=== PATIENT | male | born 1955 | race Caucasian/White ===

== ENCOUNTER 2021-05-03 18:07 | Inpatient (IN) | payer MEDICARE, BC ==
[~2021-05-03] VITALS: Ht 170.2 cm; Wt 44.9 kg
[2021-05-03 17:19] VITALS: BP 136/68
[2021-05-03] MEDS ORDERED: HYDR-4077 PO (18:49)
[2021-05-03] MEDS ORDERED: LACT1CAP57 PO (18:49)
[2021-05-03] MEDS ORDERED: TICA90TA PO (18:49)
[2021-05-03] MEDS ORDERED: DEXL60CA3 PO (18:49)
[2021-05-03] MEDS ORDERED: MINO2.5T PO (18:49)
[2021-05-03] MEDS ORDERED: LEVE500T9 PO (18:49)
[2021-05-03] MEDS ORDERED: PROC-11 PO (18:49)
--- NOTE | 2021-05-03 18:59 | NUR ---
RECEIVED PATIENT VIA AMBULANCE WITH 2 SECURITY AUDITOR AND HIS DAUGHTER AT BEDSIDE. ON O2 AT 3L JAKE NC, NO RESPIRATORY DISTRESS IDENTIFIED. NOTED WITH SKIN RASH TO UPPER EXTREMITIES, AND REDNESS TO SCROTAL TO SACRUM AREA, NO OPEN WOUND NOTED, DENIES ITCHINESS. REPORTED DISCOMFORT TO BOTH HANDS/ARMS. INFORMED MD OF ADMISSION FOR MED RECON. ORIENTED THE PATIENT TO THE ROOM. KEPT CALL LIGHT WITHIN REACH. ALL NEEDS ATTENDED. ENDORSED TO THE NEXT SHIFT TO CONTINUE WITH ADMISSION. MRSA SWAB DONE, SEND TO THE LAB.
[2021-05-03 20:05] VITALS: BP 122/62
[2021-05-03] MEDS: DOCUSATE SODIUM 100 MG CAPSULE PO SCH (21:03)
[2021-05-03] MEDS: levETIRAcetam 500 MG TABLET PO SCH (21:04)
[2021-05-03] MEDS: hydrALAZINE HCL 50 MG TABLET PO SCH (21:04)
--- NOTE | 2021-05-03 21:11 | NUR ---
Awake, alert and oriented x 3, able to follow command, able to make needs known. takes time convincing to take his medications. No s/s of aspiration. Seizure precaution maintained.
[2021-05-04 04:05] VITALS: BP 115/70
[2021-05-04] MEDS: PANTOPRAZOLE SODIUM 40 MG TABLET.DR PO SCH (06:26)
[2021-05-04 07:10] LABS: HEMATOCRIT 28.6 % (36.7-47.1); MEAN CORPUSCULAR HEMOGLOBIN 29.3 uug (23.8-33.4); MEAN CORPUSCULAR VOLUME 82.3 fL (73.0-96.2); PLATELET COUNT (AUTO) 585 K/uL (152-348)
[2021-05-04 07:30] LABS: THYROID STIMULATING HORMONE 0.873 mIU/mL (0.358-3.740)
[2021-05-04 07:56] LABS: BILIRUBIN,TOTAL 0.4 mg/dL (0.2-1.0); CREATININE 0.9 mg/dL (0.6-1.3); MAGNESIUM 2.3 mg/dL (1.8-2.4); PHOSPHOROUS 3.2 mg/dL (2.5-4.9); POTASSIUM 3.8 mmol/L (3.5-5.1); TOTAL PROTEIN, SERUM 6.9 g/dL (6.4-8.2)
[2021-05-04 08:00] VITALS: BP 125/60
[2021-05-04] MEDS ORDERED: TICAGRELOR 90 MG TABLET PO SCH (09:00)
[2021-05-04] MEDS: CULTURELLE CAPSULE PO SCH (10:23)
[2021-05-04] MEDS: levETIRAcetam 500 MG TABLET PO SCH ×2 (10:23→20:40)
[2021-05-04] MEDS: BRILINTA 90 MG PO SCH ×2 (10:24→17:59)
[2021-05-04] MEDS: hydrALAZINE HCL 50 MG TABLET PO SCH ×2 (10:24→17:59)
[2021-05-04] MEDS: MINOXIDIL 2.5 MG TABLET PO SCH ×2 (10:24→18:00)
[2021-05-04 13:47] LABS: IRON, SERUM 26 ug/dL (50-175)
--- NOTE | 2021-05-04 14:36 | NUR ---
INTERDISCIPLINARY TEAM CONFERENCE
[2021-05-04 20:00] VITALS: BP 105/50
[2021-05-04] MEDS: ATORVASTATIN 10 MG TABLET PO SCH (20:40)
[2021-05-04] MEDS: DOCUSATE SODIUM 100 MG CAPSULE PO SCH (20:40)
[2021-05-05 04:03] VITALS: BP 125/52
[2021-05-05] MEDS: PANTOPRAZOLE SODIUM 40 MG TABLET.DR PO SCH (06:43)
[2021-05-05 08:00] VITALS: BP 113/52
[2021-05-05] MEDS: CYANOCOBALAMIN 1000 MCG/ML VIAL IM SCH (08:56)
[2021-05-05] MEDS: hydrALAZINE HCL 50 MG TABLET PO SCH ×2 (08:57→17:48)
[2021-05-05] MEDS: CULTURELLE CAPSULE PO SCH (08:57)
[2021-05-05] MEDS: OXYMETAZOLINE NASAL 0.05% 15 ML SPRAY NS PRN (08:57)
[2021-05-05] MEDS: BRILINTA 90 MG PO SCH ×2 (08:58→17:48)
[2021-05-05] MEDS: levETIRAcetam 500 MG TABLET PO SCH ×2 (08:58→20:33)
[2021-05-05] MEDS: MINOXIDIL 2.5 MG TABLET PO SCH ×2 (08:58→17:48)
[2021-05-05 16:00] VITALS: BP 130/64
[2021-05-05] MEDS: ATORVASTATIN 10 MG TABLET PO SCH (20:32)
[2021-05-05] MEDS: DOCUSATE SODIUM 100 MG CAPSULE PO SCH (20:33)
[2021-05-05] MEDS ORDERED: ATORVASTATIN 10 MG TABLET PO SCH (21:00)
[2021-05-05 21:32] VITALS: BP 104/48
[2021-05-06 04:05] VITALS: BP 110/44
[2021-05-06] MEDS: HYDROMORPHONE HCL 2 MG TABLET PO PRN ×2 (04:07→11:47)
[2021-05-06] MEDS: PANTOPRAZOLE SODIUM 40 MG TABLET.DR PO SCH (06:17)
[2021-05-06 07:29] VITALS: BP 104/49
[2021-05-06] MEDS: levETIRAcetam 500 MG TABLET PO SCH ×2 (08:29→20:10)
[2021-05-06] MEDS: CYANOCOBALAMIN 1000 MCG/ML VIAL IM SCH (08:29)
[2021-05-06] MEDS: CULTURELLE CAPSULE PO SCH (08:30)
[2021-05-06] MEDS: BRILINTA 90 MG PO SCH ×2 (08:30→17:13)
[2021-05-06] MEDS: MINOXIDIL 2.5 MG TABLET PO SCH ×2 (08:30→17:12)
--- NOTE | 2021-05-06 08:53 | NUR ---
Received pt resting in bed and watching tv. AAO x3, able to let needs known C/O of feeling tired No acute distress noted. Denies pain/ discomfort. Due meds given as ordered, tolerated well up ambulating with. Safety measures maintained. Bed alarm on. Call light within reach. Will continue to monitor.
[2021-05-06] MEDS: hydrALAZINE HCL 50 MG TABLET PO SCH ×2 (09:00→17:11)
[2021-05-06] MEDS: OXYMETAZOLINE NASAL 0.05% 15 ML SPRAY NS PRN (10:45)
--- NOTE | 2021-05-06 14:04 | NUR ---
INDIVIDUALIZED PLAN OF CARE
[2021-05-06 15:15] VITALS: BP 112/57
[2021-05-06] MEDS: DOCUSATE SODIUM 100 MG CAPSULE PO SCH (20:08)
[2021-05-06] MEDS: ATORVASTATIN 10 MG TABLET PO SCH (20:09)
[2021-05-06] MEDS ORDERED: TESTOSTERONE CYPIONATE 200 MG/ML VIAL IM ONE (20:30)
[2021-05-06 20:48] VITALS: BP 89/47
--- NOTE | 2021-05-06 21:31 | NUR ---
Awake alert and oriented x4 OOB to the BR with assist. Gait unsteady. Voiding freely. Denies any pain nor any discomfort. On 2L via nasal cannula, pulse ox 92%. VSS. Tolerated po meds well. Will monitor patient. Needs attended. Fall precautions maintained. Siderails up for safety. LUE midline intact flushed and patent. No acute distress noted.
[2021-05-07] MEDS: HYDROMORPHONE HCL 2 MG TABLET PO PRN ×3 (02:00→20:20)
[2021-05-07 04:43] VITALS: BP 106/41
[2021-05-07] MEDS: PANTOPRAZOLE SODIUM 40 MG TABLET.DR PO SCH (06:07)
[2021-05-07 08:00] VITALS: BP 150/94
[2021-05-07] MEDS: levETIRAcetam 500 MG TABLET PO SCH ×2 (08:47→20:18)
[2021-05-07] MEDS: CYANOCOBALAMIN 1000 MCG/ML VIAL IM SCH (08:47)
[2021-05-07] MEDS: hydrALAZINE HCL 50 MG TABLET PO SCH ×2 (08:49→16:40)
[2021-05-07] MEDS: MINOXIDIL 2.5 MG TABLET PO SCH ×2 (08:50→16:41)
[2021-05-07] MEDS: CULTURELLE CAPSULE PO SCH (09:36)
[2021-05-07] MEDS: BRILINTA 90 MG PO SCH ×2 (09:36→16:42)
[2021-05-07 15:52] VITALS: BP 97/51
[2021-05-07] MEDS ORDERED: HYDROMORPHONE HCL 2 MG TABLET PO PRN (19:00)
[2021-05-07] MEDS ORDERED: HYDROMORPHONE 4 MG/1 ML DISP.SYRIN IV PRN (19:15)
[2021-05-07] MEDS ORDERED: HYDROMORPHONE 2 MG/1 ML DISP.SYRIN IV PRN (19:15)
[2021-05-07 20:06] VITALS: BP 134/59
[2021-05-07] MEDS: ATORVASTATIN 10 MG TABLET PO SCH (20:18)
[2021-05-07] MEDS: DOCUSATE SODIUM 100 MG CAPSULE PO SCH (20:19)
--- NOTE | 2021-05-07 23:44 | NUR ---
Resting in bed. AAOx4 Ambulates to the BR with supervision. Needs attended. Voiding well. No BM today. All due meds given without difficulty. Left upper midline flushed and patent. Will monitor patient. Medicated with Dilaudid 4mg as ordered with relief obtained. No acute distress noted.
[2021-05-08 04:03] VITALS: BP 110/58
[2021-05-08] MEDS: PANTOPRAZOLE SODIUM 40 MG TABLET.DR PO SCH (06:13)
[2021-05-08 08:00] VITALS: BP 113/49
[2021-05-08] MEDS: CYANOCOBALAMIN 1000 MCG/ML VIAL IM SCH (09:13)
[2021-05-08] MEDS: hydrALAZINE HCL 50 MG TABLET PO SCH ×2 (09:18→16:53)
[2021-05-08] MEDS: levETIRAcetam 500 MG TABLET PO SCH ×2 (09:18→20:00)
[2021-05-08] MEDS: CULTURELLE CAPSULE PO SCH (09:18)
[2021-05-08] MEDS: MINOXIDIL 2.5 MG TABLET PO SCH ×2 (09:18→16:53)
[2021-05-08] MEDS: BRILINTA 90 MG PO SCH ×2 (09:19→16:54)
[2021-05-08] MEDS: HYDROMORPHONE HCL 2 MG TABLET PO PRN ×2 (09:19→17:57)
[2021-05-08] MEDS: ENSURE ENLIVE (VAN) 240 ML LIQUID PO SCH ×2 (14:22→16:53)
[2021-05-08 16:37] VITALS: BP 119/56
[2021-05-08] MEDS: CLOTRIMAZOLE 1% CREAM 30 GM TUBE TOP SCH (17:35)
[2021-05-08] MEDS: ATORVASTATIN 10 MG TABLET PO SCH (20:00)
[2021-05-08] MEDS: DOCUSATE SODIUM 100 MG CAPSULE PO SCH (20:00)
[2021-05-08 20:03] VITALS: BP 114/49
--- NOTE | 2021-05-08 20:41 | NUR ---
Received pt resting in bed and watching tv. AAO x4. On 2L O2 via NC, 97% sat, no acute distress noted. Denies pain/ discomfort. Due meds given as ordered, tolerated well. Safety measures maintained. Call light and personal items within reach. Will continue to monitor.
[2021-05-09 04:03] VITALS: BP 120/50
[2021-05-09] MEDS: PANTOPRAZOLE SODIUM 40 MG TABLET.DR PO SCH (06:05)
[2021-05-09 07:49] VITALS: BP 107/44
[2021-05-09] MEDS: CULTURELLE CAPSULE PO SCH (08:32)
[2021-05-09] MEDS: levETIRAcetam 500 MG TABLET PO SCH ×2 (08:32→20:39)
[2021-05-09] MEDS: MINOXIDIL 2.5 MG TABLET PO SCH ×2 (08:32→16:41)
[2021-05-09] MEDS: CYANOCOBALAMIN 1000 MCG/ML VIAL IM SCH (08:33)
[2021-05-09] MEDS: BRILINTA 90 MG PO SCH ×2 (08:33→16:43)
[2021-05-09] MEDS: hydrALAZINE HCL 50 MG TABLET PO SCH ×2 (08:35→16:44)
[2021-05-09] MEDS: CLOTRIMAZOLE 1% CREAM 30 GM TUBE TOP SCH ×2 (08:39→16:45)
[2021-05-09] MEDS: ENSURE ENLIVE (VAN) 240 ML LIQUID PO SCH ×3 (08:48→16:43)
[2021-05-09] MEDS: HYDROMORPHONE HCL 2 MG TABLET PO PRN ×2 (09:19→15:04)
[2021-05-09 09:23] VITALS: BP 111/66
--- NOTE | 2021-05-09 09:30 | NUR ---
NSG: Received patient lying on bed. a/o x3. Denies any pain nor any discomfort. On 2L via nasal cannula, pulse ox 94%. VSS, am meds given Tolerated well. visited patient and talk to the patient.md stated patient is very depressed. received new ordered for psych meds. Needs attended. Fall precautions maintained. Side rails up for safety. LUE midline intact flushed and patent. No acute distress noted.
[2021-05-09] MEDS: FLUOXETINE HCL 10 MG CAPSULE PO SCH (10:11)
[2021-05-09 15:04] VITALS: BP 116/58
--- NOTE | 2021-05-09 18:39 | NUR ---
NSG: Patient remain calm and cooperative with meds and care. family visited. Denies pain or discomfort at this time. call light w/in reach.
[2021-05-09 19:59] VITALS: BP 100/47
[2021-05-09] MEDS: DOCUSATE SODIUM 100 MG CAPSULE PO SCH (20:39)
[2021-05-09] MEDS: MIRTAZAPINE 15 MG TABLET PO SCH (20:39)
[2021-05-09] MEDS: ATORVASTATIN 10 MG TABLET PO SCH (20:39)
[2021-05-10 04:15] VITALS: BP 107/43
[2021-05-10] MEDS: PANTOPRAZOLE SODIUM 40 MG TABLET.DR PO SCH (06:38)
[2021-05-10 07:30] VITALS: BP 106/54
[2021-05-10 07:34] LABS: HEMATOCRIT 25.1 % (36.7-47.1); MEAN CORPUSCULAR HEMOGLOBIN 29.1 uug (23.8-33.4); MEAN CORPUSCULAR VOLUME 83.9 fL (73.0-96.2); PLATELET COUNT (AUTO) 364 K/uL (152-348)
[2021-05-10 07:54] LABS: BILIRUBIN,TOTAL 0.3 mg/dL (0.2-1.0); CREATININE 0.9 mg/dL (0.6-1.3); MAGNESIUM 2.1 mg/dL (1.8-2.4); PHOSPHOROUS 3.8 mg/dL (2.5-4.9); POTASSIUM 3.9 mmol/L (3.5-5.1)
[2021-05-10] MEDS: levETIRAcetam 500 MG TABLET PO SCH ×2 (08:46→19:58)
[2021-05-10] MEDS: CYANOCOBALAMIN 1000 MCG/ML VIAL IM SCH (08:46)
[2021-05-10] MEDS: FLUOXETINE HCL 10 MG CAPSULE PO SCH (08:46)
[2021-05-10] MEDS: CULTURELLE CAPSULE PO SCH (08:46)
[2021-05-10] MEDS: hydrALAZINE HCL 50 MG TABLET PO SCH ×2 (08:47→16:45)
[2021-05-10] MEDS: ENSURE ENLIVE (VAN) 240 ML LIQUID PO SCH ×2 (08:49→13:20)
[2021-05-10] MEDS: BRILINTA 90 MG PO SCH ×2 (08:49→16:45)
[2021-05-10] MEDS: CLOTRIMAZOLE 1% CREAM 30 GM TUBE TOP SCH ×2 (08:50→16:47)
[2021-05-10] MEDS: MINOXIDIL 2.5 MG TABLET PO SCH ×2 (09:00→16:46)
[2021-05-10] MEDS: HYDROMORPHONE HCL 2 MG TABLET PO PRN ×2 (10:32→17:17)
[2021-05-10] MEDS ORDERED: diphenhydrAMINE 50 MG CAPSULE PO PRN (15:30)
[2021-05-10 16:00] VITALS: BP 121/60
--- NOTE | 2021-05-10 16:20 | NUR ---
Patient complained of not being able to sleep at night despite the Remeron given as ordered. Spoke to Dr. Kirk and ordered Diphenhydramine 50mg PO PRN Q HS.
[2021-05-10 19:54] VITALS: BP 104/43
[2021-05-10] MEDS: DOCUSATE SODIUM 100 MG CAPSULE PO SCH (19:56)
[2021-05-10] MEDS: MIRTAZAPINE 15 MG TABLET PO SCH (19:57)
[2021-05-10] MEDS: ATORVASTATIN 10 MG TABLET PO SCH (19:57)
[2021-05-11 04:13] VITALS: BP 111/53
[2021-05-11] MEDS: PANTOPRAZOLE SODIUM 40 MG TABLET.DR PO SCH (05:50)
[2021-05-11 07:30] VITALS: BP 112/57
--- NOTE | 2021-05-11 08:15 | NUR ---
Received pt resting in bed and watching tv. AAO x4. On 2L O2 via NC, 97% sat, no acute distress noted. no discomfort noted. Due meds given as ordered, tolerated well. Safety measures maintained. Call light and personal items within reach. Will continue to monitor.
[2021-05-11] MEDS: FLUOXETINE HCL 10 MG CAPSULE PO SCH (08:46)
[2021-05-11] MEDS: CYANOCOBALAMIN 1000 MCG/ML VIAL IM SCH (08:46)
[2021-05-11] MEDS: levETIRAcetam 500 MG TABLET PO SCH ×2 (08:46→20:42)
[2021-05-11] MEDS: CULTURELLE CAPSULE PO SCH (08:46)
[2021-05-11] MEDS: MINOXIDIL 2.5 MG TABLET PO SCH ×2 (08:47→17:38)
[2021-05-11] MEDS: BRILINTA 90 MG PO SCH ×2 (08:47→17:38)
[2021-05-11] MEDS: hydrALAZINE HCL 50 MG TABLET PO SCH ×2 (08:48→17:37)
--- NOTE | 2021-05-11 08:50 | NUR ---
INTERDISCIPLINARY TEAM CONFERENCE
[2021-05-11] MEDS: CLOTRIMAZOLE 1% CREAM 30 GM TUBE TOP SCH ×2 (08:55→17:38)
[2021-05-11] MEDS: HYDROMORPHONE HCL 2 MG TABLET PO PRN ×2 (08:59→15:32)
--- NOTE | 2021-05-11 13:29 | NUR ---
PT visited and examine by DR Rios with new order for Provigil 200 mg PO daily , order noted and carry out.
[2021-05-11 16:00] VITALS: BP 113/52
[2021-05-11 20:00] VITALS: BP 126/55
[2021-05-11] MEDS: ATORVASTATIN 10 MG TABLET PO SCH (20:42)
[2021-05-11] MEDS: MELATONIN 3 MG TABLET PO SCH (20:42)
[2021-05-11] MEDS: DOCUSATE SODIUM 100 MG CAPSULE PO SCH (20:42)
[2021-05-12 04:00] VITALS: BP 120/78
[2021-05-12] MEDS: PANTOPRAZOLE SODIUM 40 MG TABLET.DR PO SCH (06:44)
[2021-05-12 07:42] VITALS: BP 125/62
--- NOTE | 2021-05-12 07:42 | NUR ---
Received pt resting in bed asleep, No acute distress noted. No S/S of pain/ discomfort. Safety measures maintained. Bed alarm on. Call light within reach. Will continue to monitor.
[2021-05-12] MEDS: MODAFINIL 100 MG TABLET PO SCH ×2 (09:00→09:51)
[2021-05-12] MEDS: CYANOCOBALAMIN 1000 MCG/ML VIAL IM SCH (09:25)
[2021-05-12] MEDS: hydrALAZINE HCL 50 MG TABLET PO SCH ×2 (09:25→17:00)
[2021-05-12] MEDS: levETIRAcetam 500 MG TABLET PO SCH ×2 (09:25→20:46)
[2021-05-12] MEDS: CULTURELLE CAPSULE PO SCH (09:25)
[2021-05-12] MEDS: MINOXIDIL 2.5 MG TABLET PO SCH ×2 (09:26→17:25)
[2021-05-12] MEDS: BRILINTA 90 MG PO SCH ×2 (09:26→17:24)
[2021-05-12] MEDS: CLOTRIMAZOLE 1% CREAM 30 GM TUBE TOP SCH ×2 (09:28→17:26)
[2021-05-12] MEDS: FLUOXETINE HCL 10 MG CAPSULE PO SCH (09:28)
--- NOTE | 2021-05-12 09:30 | NUR ---
Pt Refused to take his new prescribed medication Provigil 200 mg stated " no i do not need the medicine will make my blood pressure go up attempted X 3 continue to refused .
[2021-05-12 15:50] VITALS: BP 107/57
[2021-05-12 20:00] VITALS: BP 109/44
[2021-05-12] MEDS ORDERED: diphenhydrAMINE 50 MG/1 ML VIAL IV PRN (20:30)
[2021-05-12] MEDS: DOCUSATE SODIUM 100 MG CAPSULE PO SCH (20:45)
[2021-05-12] MEDS: ATORVASTATIN 10 MG TABLET PO SCH (20:46)
[2021-05-12] MEDS: MELATONIN 3 MG TABLET PO SCH (20:46)
[2021-05-13 04:00] VITALS: BP 116/54
--- NOTE | 2021-05-13 05:57 | NUR ---
Patient remained stable during the shift. Denies pain/discomfort. Frequent checks done. Safety precautions maintained. All due meds given. all needs attended. Call light within reach. Will endorse to the next shift.
--- NOTE | 2021-05-13 06:00 | NUR ---
PATIENT REPORTED GENERALIZED PAIN. PRN PAIN MEDICATION GIVEN ORDERED. ENDORSED TO THE NEXT SHIFT.
[2021-05-13] MEDS: PANTOPRAZOLE SODIUM 40 MG TABLET.DR PO SCH (06:17)
[2021-05-13] MEDS: HYDROMORPHONE HCL 2 MG TABLET PO PRN ×2 (06:23→12:24)
[2021-05-13 07:50] VITALS: BP 86/44
[2021-05-13] MEDS: levETIRAcetam 500 MG TABLET PO SCH ×2 (08:14→20:20)
[2021-05-13] MEDS: CULTURELLE CAPSULE PO SCH (08:14)
[2021-05-13] MEDS: FLUOXETINE HCL 10 MG CAPSULE PO SCH (08:14)
[2021-05-13] MEDS: CYANOCOBALAMIN 1000 MCG/ML VIAL IM SCH (08:14)
[2021-05-13] MEDS: BRILINTA 90 MG PO SCH ×2 (08:14→17:24)
[2021-05-13] MEDS: MODAFINIL 100 MG TABLET PO SCH ×2 (08:21→09:00)
[2021-05-13] MEDS: hydrALAZINE HCL 50 MG TABLET PO SCH ×2 (08:26→17:00)
[2021-05-13] MEDS: MINOXIDIL 2.5 MG TABLET PO SCH ×2 (08:27→17:00)
[2021-05-13] MEDS: CLOTRIMAZOLE 1% CREAM 30 GM TUBE TOP SCH ×2 (08:29→17:24)
[2021-05-13 08:31] VITALS: BP 100/54
[2021-05-13 17:19] VITALS: BP 99/58
[2021-05-13] MEDS ORDERED: TEMAZEPAM 15 MG CAPSULE PO PRN (17:30)
--- NOTE | 2021-05-13 19:23 | NUR ---
no changes noted during shift
[2021-05-13] MEDS: DOCUSATE SODIUM 100 MG CAPSULE PO SCH (20:21)
[2021-05-13] MEDS: ATORVASTATIN 10 MG TABLET PO SCH (20:21)
[2021-05-13] MEDS: MELATONIN 3 MG TABLET PO SCH (20:28)
[2021-05-13 20:33] VITALS: BP 126/65
[2021-05-13] MEDS ORDERED: diphenhydrAMINE 50 MG CAPSULE PO PRN (20:45)
--- NOTE | 2021-05-14 03:35 | NUR ---
Received pt awake sitting on bed with daughter at bedside. No respiratory distress noted. Pt refused melatonin d/t not helping with sleep. Benadryl IV converted back to previous order of PO as requested by pt and daughter. Denies pain and discomfort at this time. All needs attended. Call light placed within reach. Will continue to monitor.
[2021-05-14 04:26] VITALS: BP 119/55
[2021-05-14] MEDS: PANTOPRAZOLE SODIUM 40 MG TABLET.DR PO SCH (06:05)
--- NOTE | 2021-05-14 06:53 | NUR ---
No changes noted throughout the shift. Call light placed within reach. Frequent visual checks done. Will endorse to next shift.
[2021-05-14] MEDS: CULTURELLE CAPSULE PO SCH (08:42)
[2021-05-14] MEDS: hydrALAZINE HCL 50 MG TABLET PO SCH ×2 (08:42→17:12)
[2021-05-14] MEDS: FLUOXETINE HCL 10 MG CAPSULE PO SCH (08:43)
[2021-05-14] MEDS: levETIRAcetam 500 MG TABLET PO SCH (08:43)
[2021-05-14] MEDS: MODAFINIL 100 MG TABLET PO SCH (08:43)
[2021-05-14] MEDS: MINOXIDIL 2.5 MG TABLET PO SCH ×2 (08:43→17:13)
[2021-05-14] MEDS: BRILINTA 90 MG PO SCH ×2 (08:44→17:13)
[2021-05-14] MEDS: CYANOCOBALAMIN 1000 MCG/ML VIAL IM SCH (08:47)
[2021-05-14] MEDS: CLOTRIMAZOLE 1% CREAM 30 GM TUBE TOP SCH ×2 (08:47→17:14)
[2021-05-14] MEDS: HYDROMORPHONE HCL 2 MG TABLET PO PRN ×2 (08:52→17:13)
[2021-05-14 12:39] VITALS: BP 104/41
[2021-05-14 16:03] VITALS: BP 120/59
[2021-05-14 17:12] VITALS: BP 120/59
--- NOTE | 2021-05-14 18:43 | NUR ---
d/c to home left with daughter via private transportation. d/c instructions given to him and his daughter verbalized understanding. meds returned from pharmacy. vss in no acute distress
== END 2021-05-14 18:10 | disposition home health service (06) | DRG 92 ==
PROVIDERS: ADMIT Physical Medicine & Rehabilitation Pain Medicine; ATTEND Physical Medicine & Rehabilitation Pain Medicine
DX: G92.8 Other toxic encephalopathy (principal); D84.89 Other immunodeficiencies; F33.1 Major depressive disorder, recurrent, moderate; R62.7 Adult failure to thrive; D64.9 Anemia, unspecified; E53.8 Deficiency of other specified B group vitamins; E78.5 Hyperlipidemia, unspecified; G40.909 Epilepsy, unspecified, not intractable, without status epilepticus; G89.29 Other chronic pain; I25.10 Atherosclerotic heart disease of native coronary artery without angina pectoris; I70.0 Atherosclerosis of aorta; M85.80 Other specified disorders of bone density and structure, unspecified site; M51.16 Intervertebral disc disorders with radiculopathy, lumbar region; M19.90 Unspecified osteoarthritis, unspecified site; Z86.61 Personal history of infections of the central nervous system; Z91.14 Patient's other noncompliance with medication regimen; Z91.19 Patient's noncompliance with other medical treatment and regimen; Z95.5 Presence of coronary angioplasty implant and graft; M54.9 Dorsalgia, unspecified; Z88.0 Allergy status to penicillin; Z88.2 Allergy status to sulfonamides; Z88.8 Allergy status to other drugs, medicaments and biological substances; Z88.1 Allergy status to other antibiotic agents; Z91.011 Allergy to milk products; R53.1 Weakness; F01.50 Vascular dementia, unspecified severity, without behavioral disturbance, psychotic disturbance, mood disturbance, and anxiety; I10 Essential (primary) hypertension; I11.9 Hypertensive heart disease without heart failure
CPT/HCPCS: 36415; 70030-TC; 82652; 83550; 83735; 84100; 84443; 85025; 97161; J1170; J1200; J3420; Q0163

== ENCOUNTER 2022-02-14 14:11 | Inpatient (IN) | payer MEDICARE, BC ==
[~2022-02-14] VITALS: Ht 170.2 cm; Wt 49.9 kg
[~2022-02-14 14:11] MED LIST: AMIN946L5 PO; CLOP75TA15 PO; DEXL60CA3 PO; DOXY-326 PO; ENOX40DI SQ; HYDR-4077 PO; LACT1CAP57 PO; LEVE500T9 PO; MINO2.5T PO
--- NOTE | 2022-02-14 15:41 | NUR ---
MD@bedside, medical screening exam in progress
[2022-02-14] MEDS ORDERED: ATOR10TA PO (15:49)
[2022-02-14] MEDS ORDERED: PROC-11 PO (15:49)
[2022-02-14] MEDS ORDERED: LORA2TAB95 PO (15:49)
[2022-02-14] MEDS ORDERED: HYDR2TAB7 PO (15:49)
[2022-02-14] MEDS ORDERED: LORA-259 PO (15:49)
[2022-02-14] MEDS ORDERED: NALO25TA4 PO (15:49)
[2022-02-14] MEDS ORDERED: DICY10CA13 PO (15:49)
[2022-02-14] MEDS ORDERED: PANT40TA2 PO (15:49)
[2022-02-14] MEDS ORDERED: CHOL2000 PO (15:49)
[2022-02-14] MEDS ORDERED: IV NS 1000 ML 1,000 ML IV ONE ×2 (16:00→18:45)
--- NOTE | 2022-02-14 16:00 | NUR ---
Farm Machinery Mechanic assumes care: 1st contact with patient, asleep, respiration: easy, arousable by voice and soft touch, +eye opening seen with stimuli but non-verbal , skin warm and dry. Patient's daughter is at bedside.
--- NOTE | 2022-02-14 16:11 | NUR ---
Lab staff Ita was not able to draw blood, notified. IV fluid infusing at this time. Midline/PICC nurse was called by nursing boiler shop supervisor Yanira.
--- NOTE | 2022-02-14 17:50 | NUR ---
PICC line nurse is at bedside.
[2022-02-14 18:15] LABS: HEMATOCRIT 30.3 % (36.7-47.1); MEAN CORPUSCULAR HEMOGLOBIN 29.8 uug (23.8-33.4); MEAN CORPUSCULAR VOLUME 85.7 fL (73.0-96.2); PLATELET COUNT (AUTO) 167 K/uL (152-348)
[2022-02-14 18:19] LABS: CARBON DIOXIDE 30 mmol/L (21-32); CHLORIDE 103 mmol/L (98-107); CREATININE 0.9 mg/dL (0.6-1.3); GLUCOSE 98 mg/dL (74-106); POTASSIUM 3.9 mmol/L (3.5-5.1); UREA NITROGEN, BLOOD 16 mg/dL (7-18)
[2022-02-14 18:25] LABS: ALANINE AMINOTRANSFERASE 23 U/L (16-63); ALKALINE PHOSPHATASE 69 U/L (50-136); ASPARTATE AMINOTRANSFERASE 7 U/L (15-37); BILIRUBIN,TOTAL 0.5 mg/dL (0.2-1.0); CREATINE KINASE, TOTAL 55 U/L (39-308); MAGNESIUM 1.6 mg/dL (1.8-2.4)
[2022-02-14 18:32] LABS: THYROID STIMULATING HORMONE 1.658 mIU/mL (0.358-3.740)
[2022-02-14] MEDS ORDERED: MAGNESIUM SULFATE/D5W 200 ML ONE (18:54)
[2022-02-14] MEDS: MAGNESIUM SULFATE/D5W 100 ML IV SCH ×2 (19:00→19:55)
[2022-02-14] MEDS ORDERED: ACETAMINOPHEN 325 MG TABLET PO PRN (19:00)
[2022-02-14] MEDS ORDERED: ONDANSETRON 4 MG/2 ML VIAL IV PRN (19:00)
[2022-02-14] MEDS ORDERED: MORPHINE SULFATE 2 MG/1 ML DISP.SYRIN IV PRN (19:00)
[2022-02-14] MEDS ORDERED: MAGNESIUM HYDROXIDE 30 ML LIQUID UDC PO PRN (19:00)
[2022-02-14] MEDS ORDERED: PROCHLORPERAZINE MALEATE 5 MG TABLET PO PRN (19:00)
--- NOTE | 2022-02-14 19:03 | NUR ---
Patient is waiting for telemetry bed & nurse, still for urine specimen, endorsed to 7pm nurse Aaron and CHANG Du accordingly.
[2022-02-14 20:00] VITALS: BP 143/69
--- NOTE | 2022-02-14 20:00 | NUR ---
Received pt via teena assisted by nursing supervisor inspection department. Daughter at bedside, knowledgeable of father's condition. Admitted to Med Surg under Dr. Wen with diagnosis of Failure to thrive. AAOx3, can comprehend but unable to explain back. Able to answer simple questions. On room air. Has generalized weakness. Unable to ambulate. IV on R UA Midline intact and patent. Finished 2nd bag of Magnesium. Skin is intact. Denies pain or any discomfort. All needs attended. Safety precautions observed. Call light in reach.
[2022-02-14] MEDS: levETIRAcetam 500 MG TABLET PO SCH (21:59)
[2022-02-14] MEDS: HEPARIN SODIUM,PORCINE 5,000 UNITS/ML VIAL SQ SCH (21:59)
[2022-02-14] MEDS: ATORVASTATIN 10 MG TABLET PO SCH (21:59)
[2022-02-14] MEDS: LORAZEPAM 1 MG TABLET PO PRN (22:45)
[2022-02-15] MEDS: PANTOPRAZOLE SODIUM 40 MG TABLET.DR PO SCH (06:02)
[2022-02-15 08:15] LABS: HEMATOCRIT 30.6 % (36.7-47.1); MEAN CORPUSCULAR HEMOGLOBIN 29.3 uug (23.8-33.4); MEAN CORPUSCULAR VOLUME 84.6 fL (73.0-96.2); PLATELET COUNT (AUTO) 173 K/uL (152-348)
[2022-02-15 08:58] LABS: BILIRUBIN,TOTAL 0.5 mg/dL (0.2-1.0); CREATININE 0.8 mg/dL (0.6-1.3); PHOSPHOROUS 3.4 mg/dL (2.5-4.9); POTASSIUM 3.6 mmol/L (3.5-5.1); TOTAL PROTEIN, SERUM 6.5 g/dL (6.4-8.2)
[2022-02-15] MEDS ORDERED: DOCUSATE SODIUM 100 MG CAPSULE PO SCH (09:00)
[2022-02-15] MEDS ORDERED: MIRALAX 17 GM POWD.PACK PO SCH (09:00)
[2022-02-15] MEDS: CLOPIDOGREL 75 MG TABLET PO SCH (10:08)
[2022-02-15] MEDS: levETIRAcetam 500 MG TABLET PO SCH ×3 (10:08→21:00)
[2022-02-15] MEDS: MINOXIDIL 2.5 MG TABLET PO SCH ×2 (10:09→17:04)
[2022-02-15] MEDS: DICYCLOMINE HCL 10 MG CAPSULE PO SCH (10:09)
[2022-02-15] MEDS: CULTURELLE CAPSULE PO SCH (10:09)
[2022-02-15] MEDS: CHOLECALCIFEROL 1,000 UNIT TABLET PO SCH (10:10)
[2022-02-15] MEDS: HEPARIN SODIUM,PORCINE 5,000 UNITS/ML VIAL SQ SCH ×2 (10:10→20:51)
[2022-02-15] MEDS: PROTEIN SUPPLEMENT (PROSTAT) 30 ML LIQUID PO SCH ×3 (10:11→17:04)
[2022-02-15 11:32] VITALS: BP 132/62
[2022-02-15] MEDS: IV D5/ 0.9% NACL 1,000 ML IV PRN (12:42)
[2022-02-15 13:05] LABS: *BILIRUBIN,URIN NEGATIVE (NEGATIVE); *BLOOD, URINE NEGATIVE (NEGATIVE); *CLARITY,URINE CLEAR (CLEAR); *COLOR,URINE YELLOW (YELLOW); *KETONES,URINE NEGATIVE (NEGATIVE); *UROBILINOGEN,URINE 0.2 E.U./dl (NORMAL); LEUKOCYTE ESTERASE ,URINE NEGATIVE (NEGATIVE); NITRITE, URINE NEGATIVE (NEGATIVE); PH,URINE 7.5 (5.0-8.0); UGLUCOSE NEGATIVE (NEGATIVE)
[2022-02-15] MEDS: MOVANTIK 25MG TABLET PO SCH (13:32)
[2022-02-15 16:00] VITALS: BP 134/53
[2022-02-15] MEDS: HYDROMORPHONE HCL 2 MG TABLET PO PRN (18:39)
[2022-02-15 20:00] VITALS: BP 167/79
[2022-02-15] MEDS: ATORVASTATIN 10 MG TABLET PO SCH ×2 (20:49→21:00)
[2022-02-15] MEDS: hydrALAZINE HCL 20 MG/1 ML VIAL IV PRN (20:49)
--- NOTE | 2022-02-15 20:50 | NUR ---
BP 167/79. Apresoline given as ordered. Will continue to monitor.
--- NOTE | 2022-02-15 22:10 | NUR ---
Pt refused to take PO medications and water. Will continue to monitor.
[2022-02-15] MEDS ORDERED: LORAZEPAM 2 MG/1 ML VIAL IV PRN (23:30)
[2022-02-15] MEDS ORDERED: QUETIAPINE FUMARATE 25 MG TABLET PO PRN (23:30)
--- NOTE | 2022-02-15 23:55 | NUR ---
Pt keeps on getting out of bed for no reason. Doesn't follow instructions. MD aware. Received order for Ativan 1 mg IV once. Administered as ordered. Safety precautions in place. All needs attended.
[2022-02-16] MEDS: IV D5/ 0.9% NACL 1,000 ML IV PRN (02:38)
[2022-02-16] MEDS: hydrALAZINE HCL 20 MG/1 ML VIAL IV PRN (04:30)
[2022-02-16 04:37] VITALS: BP 134/74
[2022-02-16] MEDS: PANTOPRAZOLE SODIUM 40 MG TABLET.DR PO SCH (06:29)
[2022-02-16 08:16] LABS: HEMATOCRIT 30.5 % (36.7-47.1); MEAN CORPUSCULAR HEMOGLOBIN 29.8 uug (23.8-33.4); MEAN CORPUSCULAR VOLUME 84.3 fL (73.0-96.2); PLATELET COUNT (AUTO) 192 K/uL (152-348)
[2022-02-16] MEDS: CHOLECALCIFEROL 1,000 UNIT TABLET PO SCH (08:36)
[2022-02-16] MEDS: DICYCLOMINE HCL 10 MG CAPSULE PO SCH (08:36)
[2022-02-16] MEDS: CULTURELLE CAPSULE PO SCH (08:36)
[2022-02-16] MEDS: CLOPIDOGREL 75 MG TABLET PO SCH (08:36)
[2022-02-16] MEDS: MINOXIDIL 2.5 MG TABLET PO SCH ×2 (08:37→16:35)
[2022-02-16] MEDS: HEPARIN SODIUM,PORCINE 5,000 UNITS/ML VIAL SQ SCH ×2 (08:37→20:08)
[2022-02-16] MEDS: levETIRAcetam 500 MG TABLET PO SCH ×2 (08:37→20:03)
[2022-02-16 08:47] LABS: CREATININE 0.8 mg/dL (0.6-1.3); MAGNESIUM 1.7 mg/dL (1.8-2.4); PHOSPHOROUS 3.4 mg/dL (2.5-4.9); POTASSIUM 3.3 mmol/L (3.5-5.1)
[2022-02-16] MEDS: MOVANTIK 25MG TABLET PO SCH (08:50)
[2022-02-16] MEDS: PROTEIN SUPPLEMENT (PROSTAT) 30 ML LIQUID PO SCH ×5 (09:00→21:00)
[2022-02-16] MEDS ORDERED: MAGNESIUM OXIDE 400 MG TABLET PO ONE (10:30)
[2022-02-16] MEDS ORDERED: POTASSIUM CHLORIDE 20 MEQ TAB.PRT.SR PO ONE ×2 (10:30→11:03)
[2022-02-16] MEDS: LORAZEPAM 1 MG TABLET PO PRN ×2 (11:10→20:04)
[2022-02-16 12:29] VITALS: BP 142/62
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
[2022-02-16 16:16] VITALS: BP 145/73
[2022-02-16] MEDS ORDERED: LORAZEPAM 2 MG/1 ML VIAL IV ONE (16:30)
[2022-02-16] MEDS ORDERED: QUETIAPINE FUMARATE 25 MG TABLET PO ONE (16:30)
[2022-02-16] MEDS: HYDROMORPHONE HCL 2 MG TABLET PO PRN (16:36)
--- NOTE | 2022-02-16 17:00 | NUR ---
pt daughter is with the pt calling the nurse to un hook the iv try to put the long sleeves shirt try to explain to her with the iv continue she start screaming on the nurse and saying we are not here to make the nurses friends ,you needs to get stronger ,send the other nurse to the pt room
[2022-02-16 20:00] VITALS: BP 123/63
[2022-02-16] MEDS: ATORVASTATIN 10 MG TABLET PO SCH (20:04)
[2022-02-16] MEDS: QUETIAPINE FUMARATE 25 MG TABLET PO SCH (21:00)
[2022-02-17 04:00] VITALS: BP 120/68
[2022-02-17 07:05] LABS: CREATININE 0.9 mg/dL (0.6-1.3); MAGNESIUM 1.7 mg/dL (1.8-2.4); POTASSIUM 3.8 mmol/L (3.5-5.1)
[2022-02-17] MEDS: PANTOPRAZOLE SODIUM 40 MG TABLET.DR PO SCH (07:18)
[2022-02-17] MEDS: MOVANTIK 25MG TABLET PO SCH (09:00)
[2022-02-17] MEDS ORDERED: CYANOCOBALAMIN 1000 MCG/ML VIAL IM ONE (10:00)
[2022-02-17] MEDS ORDERED: CYANOCOBALAMIN 1000 MCG/ML VIAL IM SCH (10:00)
[2022-02-17] MEDS ORDERED: MAGNESIUM OXIDE 400 MG TABLET PO ONE (10:00)
[2022-02-17] MEDS: CHOLECALCIFEROL 1,000 UNIT TABLET PO SCH (10:01)
[2022-02-17] MEDS: levETIRAcetam 500 MG TABLET PO SCH ×2 (10:02→21:26)
[2022-02-17] MEDS: DICYCLOMINE HCL 10 MG CAPSULE PO SCH (10:02)
[2022-02-17] MEDS: CULTURELLE CAPSULE PO SCH (10:09)
[2022-02-17] MEDS: MINOXIDIL 2.5 MG TABLET PO SCH ×2 (10:09→17:27)
[2022-02-17] MEDS: CLOPIDOGREL 75 MG TABLET PO SCH (10:11)
[2022-02-17] MEDS: HEPARIN SODIUM,PORCINE 5,000 UNITS/ML VIAL SQ SCH ×2 (10:11→21:29)
[2022-02-17] MEDS: PROTEIN SUPPLEMENT (PROSTAT) 30 ML LIQUID PO SCH ×3 (10:16→17:27)
--- NOTE | 2022-02-17 12:43 | NUR ---
10:30-PATIENT LEFT TO [facility] SCHEDULED FOR MRI OF BRAIN W/O CONTRAST, LEFT IN STABLE CONDITIONS. DUE MEDICATIONS ADMINISTERED ORDERED, NO ASE NOTED. 11:15 REC'D A CALL FROM NOAH AT [facility], PER NOAH PATIENT IS UNCOOPERATIVE AND REFUSING ABOVE PROCEDURE; INFORMED NOAH TO GIVE PATIENT SOME TIME AND TRY GET PROCEDURE DONE. 12:15PM-PATIENT REFUSED PROCEDURE AND CAME BACK AT THIS TIME. COLLEGE OR UNIVERSITY BUSINESS MANAGER CRUZ YOUNG WAS MADE AWARE OF PROCEDURE NOT DONE DT PATIENT REFUSED. PER CRUZ, "OK" AND TO RESUME IVF HYDRATION.
[2022-02-17 15:02] VITALS: BP 157/77
--- NOTE | 2022-02-17 17:40 | NUR ---
Patient on IVF hydration as ordered, tona. well no S/S of dehydration or fluid overload noted. Oral fluids encouraged as tolerated and taken fairly during shift. Patient requires maximum assist with ADLs for personal care/hygiene. Incontinent of both, Good care provided. No AMUREEN noted.
[2022-02-17] MEDS: HYDROMORPHONE HCL 2 MG TABLET PO PRN (19:40)
[2022-02-17 20:50] VITALS: BP 144/72
[2022-02-17] MEDS: QUETIAPINE FUMARATE 25 MG TABLET PO SCH (21:26)
[2022-02-17] MEDS: ATORVASTATIN 10 MG TABLET PO SCH (21:26)
[2022-02-18 04:43] VITALS: BP 156/73
[2022-02-18] MEDS: IV D5/ 0.9% NACL 1,000 ML IV PRN ×2 (05:44→21:30)
[2022-02-18] MEDS: PANTOPRAZOLE SODIUM 40 MG TABLET.DR PO SCH (06:32)
--- NOTE | 2022-02-18 07:48 | NUR ---
during rounding patient noted standing out of bed, assisted back to bed with another nurse, safety precautions are in place, call light with in reach, patient stated his name is Nubia, when asked patient if knows where is he currently, patient did not answer, went back to sleep, unable to reinforce any education because patient is confuse and not able to participate. bed alarm is on. continue to monitor. Addendum: 02/18/22 at 1610 by MOISES GARSIA RN RN unsteady gait and poor balance, high risk for injury.
[2022-02-18 08:00] VITALS: BP 148/70
[2022-02-18 08:07] LABS: *TESTOSTERONE, SERUM 196 ng/dL (264-916)
[2022-02-18] MEDS: HEPARIN SODIUM,PORCINE 5,000 UNITS/ML VIAL SQ SCH ×2 (09:03→20:03)
[2022-02-18] MEDS: levETIRAcetam 500 MG TABLET PO SCH ×2 (09:04→20:04)
[2022-02-18] MEDS: CULTURELLE CAPSULE PO SCH (09:04)
[2022-02-18] MEDS: CLOPIDOGREL 75 MG TABLET PO SCH (09:04)
[2022-02-18] MEDS: CYANOCOBALAMIN 1000 MCG/ML VIAL IM SCH (09:04)
[2022-02-18] MEDS: CHOLECALCIFEROL 1,000 UNIT TABLET PO SCH (09:05)
[2022-02-18] MEDS: MOVANTIK 25MG TABLET PO SCH (09:05)
[2022-02-18] MEDS: DICYCLOMINE HCL 10 MG CAPSULE PO SCH (09:05)
[2022-02-18] MEDS: MINOXIDIL 2.5 MG TABLET PO SCH ×2 (09:05→17:06)
[2022-02-18] MEDS: PROTEIN SUPPLEMENT (PROSTAT) 30 ML LIQUID PO SCH ×2 (09:06→17:06)
[2022-02-18] MEDS: LORAZEPAM 1 MG TABLET PO PRN ×2 (12:03→20:04)
[2022-02-18 12:44] VITALS: BP 158/84
--- NOTE | 2022-02-18 12:53 | NUR ---
patient constantly trying to get out of the bed, reoriented, assisted to the toilet, assisted back to bed, safety precautions are in place, bed alarm on, bed in low position, continue to monitor. unable to teach patient about safety because of poor concentration.
--- NOTE | 2022-02-18 13:11 | NUR ---
on duty hammer shop supervisor and on duty charge nurse checked on patient. since daughter complained about IV. IV is patent, running fluids as ordered.
--- NOTE | 2022-02-18 14:16 | NUR ---
patient is getting aggressive, try to redirect and started hitting, called dr Mari for consult, and Dr Eastman. Yuly made aware as well.
--- NOTE | 2022-02-18 14:19 | NUR ---
patient stated he is in pain, did not state the level of pain from 0-10 upon asking, offered patient Dilaudid and Morphine as ordered, patient refused to take anything for pain at this time.
[2022-02-18] MEDS ORDERED: OLANZAPINE 10 MG VIAL IM ONE (14:45)
--- NOTE | 2022-02-18 14:51 | NUR ---
patient started walking to outside the hallway, difficult to redirect, patient stated he wants to go downstairs, upon redirecting patient got combative, started hitting, minnie marroquin was called, charge nurse on duty and supervisor last model department on duty assessed the situation. Yuly SANCHEZ made aware, with order to give Zyprexa IM as ordered, order noted, Zyprexa IM administered, continue to monitor patient. Addendum: 02/18/22 at 1456 by MOISES GARSIA RN, RN charge nurse on duty made a decision to restraint the patient for patient safety, order obtained from LAURA Emery.
--- NOTE | 2022-02-18 14:58 | NUR ---
offered patient fluids, clean and dry, comfortable in bed, continue to monitor
--- NOTE | 2022-02-18 16:05 | NUR ---
checked on patient , fully awake, no sob, respiration even nonlabored, skin warm and dry to touch, assessed skin, skin intact, capillary refill less than 3 seconds,good circulation to both hands, fluids given, assisted to the bathroom, no distress noted. Addendum: 02/18/22 at 1611 by MOISES GARSIA RN, RN current vitals bp 135/81,pulse 92,respirations 18, temperature 98.0, pain 0/10
[2022-02-18 16:11] VITALS: BP 135/81
[2022-02-18 16:36] VITALS: BP 135/81
--- NOTE | 2022-02-18 17:08 | NUR ---
patient is in bed, comfortable, clean and dry, fully awake, no sob,no distress noted, checks made on patient every 15 minutes, no skin issues noted, offered fluids, toileting, asked patient if he has pain, patient denied any pain at this time, continue to monitor per unit protocol.
--- NOTE | 2022-02-18 18:03 | NUR ---
patient is taken karel toilet, patient voided, cleaned. assisted back to bed, restrain removed intermittently, with supervision, patient tried to get up every time tried to remove the restrain, very poor safety awareness, high risk for injury tried to redirect patient, not effective, unsteady gait,assisted with feeding dinner and oral fluids are provided, oral care, perineal care provided, put back on restraint. no sob, respirations are even nonlabored, skin warm and dry to touch,skin intact, good circulation, no distress noted.
--- NOTE | 2022-02-18 19:16 | NUR ---
patient is awake, in bed, no distress noted, endorsed to next shift accordingly
[2022-02-18] MEDS: ATORVASTATIN 10 MG TABLET PO SCH (20:03)
[2022-02-18] MEDS: HYDROMORPHONE HCL 2 MG TABLET PO PRN (20:05)
[2022-02-18] MEDS: QUETIAPINE FUMARATE 25 MG TABLET PO SCH (20:08)
[2022-02-18 20:54] VITALS: BP 145/72
[2022-02-19 04:27] VITALS: BP 132/62
[2022-02-19] MEDS: PANTOPRAZOLE SODIUM 40 MG TABLET.DR PO SCH (07:52)
[2022-02-19] MEDS: DICYCLOMINE HCL 10 MG CAPSULE PO SCH (09:00)
[2022-02-19] MEDS: levETIRAcetam 500 MG TABLET PO SCH ×2 (09:00→22:01)
[2022-02-19] MEDS: CYANOCOBALAMIN 1000 MCG/ML VIAL IM SCH (09:00)
[2022-02-19] MEDS: CHOLECALCIFEROL 1,000 UNIT TABLET PO SCH (09:00)
[2022-02-19] MEDS: CLOPIDOGREL 75 MG TABLET PO SCH (09:00)
[2022-02-19] MEDS: MOVANTIK 25MG TABLET PO SCH (09:00)
[2022-02-19] MEDS: HEPARIN SODIUM,PORCINE 5,000 UNITS/ML VIAL SQ SCH ×2 (09:00→22:02)
[2022-02-19] MEDS: MINOXIDIL 2.5 MG TABLET PO SCH ×3 (09:00→17:00)
[2022-02-19] MEDS: CULTURELLE CAPSULE PO SCH (09:00)
[2022-02-19] MEDS: PROTEIN SUPPLEMENT (PROSTAT) 30 ML LIQUID PO SCH ×2 (09:00→17:00)
[2022-02-19 11:22] VITALS: BP 157/82
[2022-02-19] MEDS: IV D5/ 0.9% NACL 1,000 ML IV PRN (13:01)
[2022-02-19] MEDS: HYDROMORPHONE HCL 2 MG TABLET PO PRN (13:11)
[2022-02-19 15:44] VITALS: BP 157/80
[2022-02-19] MEDS ORDERED: LORAZEPAM 1 MG TABLET PO PRN ×2 (17:00)
[2022-02-19 20:00] VITALS: BP 149/72
--- NOTE | 2022-02-19 21:30 | NUR ---
PATIENT IN BED AWAKE BUT CONFUSED TRIES TO GET OOB . ON SOFT BILATERAL WRIST RESTRAINTS FOR SAFETY .EDUCATED PATIENT AND ADVISED TO CALL FOR HELP CALL LIGHT PLACED WITHIN REACH .
[2022-02-19] MEDS: QUETIAPINE FUMARATE 25 MG TABLET PO SCH (22:00)
[2022-02-19] MEDS: ATORVASTATIN 10 MG TABLET PO SCH (22:01)
[2022-02-20] MEDS: IV D5/ 0.9% NACL 1,000 ML IV PRN ×2 (01:28→15:40)
[2022-02-20 04:00] VITALS: BP 127/80
[2022-02-20] MEDS: PANTOPRAZOLE SODIUM 40 MG TABLET.DR PO SCH (06:12)
[2022-02-20 06:48] LABS: HEMATOCRIT 34.8 % (36.7-47.1); MEAN CORPUSCULAR HEMOGLOBIN 29.4 uug (23.8-33.4); MEAN CORPUSCULAR VOLUME 86.7 fL (73.0-96.2); PLATELET COUNT (AUTO) 213 K/uL (152-348)
[2022-02-20 07:19] LABS: CREATININE 0.8 mg/dL (0.6-1.3); MAGNESIUM 1.8 mg/dL (1.8-2.4); PHOSPHOROUS 4.4 mg/dL (2.5-4.9); POTASSIUM 3.6 mmol/L (3.5-5.1)
[2022-02-20] MEDS: PROTEIN SUPPLEMENT (PROSTAT) 30 ML LIQUID PO SCH (09:00)
[2022-02-20] MEDS: MOVANTIK 25MG TABLET PO SCH (10:41)
[2022-02-20] MEDS: MINOXIDIL 2.5 MG TABLET PO SCH (10:42)
[2022-02-20] MEDS: CYANOCOBALAMIN 1000 MCG/ML VIAL IM SCH (10:42)
[2022-02-20] MEDS: DICYCLOMINE HCL 10 MG CAPSULE PO SCH (10:42)
[2022-02-20] MEDS: CULTURELLE CAPSULE PO SCH (10:42)
[2022-02-20] MEDS: CHOLECALCIFEROL 1,000 UNIT TABLET PO SCH (10:42)
[2022-02-20] MEDS: CLOPIDOGREL 75 MG TABLET PO SCH (10:42)
[2022-02-20] MEDS: levETIRAcetam 500 MG TABLET PO SCH (10:42)
[2022-02-20] MEDS: HEPARIN SODIUM,PORCINE 5,000 UNITS/ML VIAL SQ SCH (10:43)
[2022-02-20 11:58] VITALS: BP 130/69
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
--- NOTE | 2022-02-20 15:00 | NUR ---
Patient has been drowsy since morning, when I received him he was sleeping. He took all his scheduled morning medications. He's been having a flat effect on his face, seemed depressed. He is non-verbal today and doesn't give any reaction when asked questions.
[2022-02-20] MEDS ORDERED: QUET25TA36 PO (15:01)
[2022-02-20] MEDS ORDERED: HEPA50007 SQ (15:01)
[2022-02-20] MEDS ORDERED: PROT30LI PO (15:01)
[2022-02-20] MEDS ORDERED: CYAN10006 IM (15:01)
[2022-02-20] MEDS ORDERED: HYDROMORPHONE HCL 2 MG TABLET PO PRN (15:45)
[2022-02-20 15:55] VITALS: BP 145/79
[2022-02-21 13:06] LABS: METHYLMALONIC ACID 123 nmol/L (0-378)
[2022-03-02] MEDS ORDERED: CYANOCOBALAMIN 1000 MCG/ML VIAL IM SCH (09:00)
== END 2022-02-20 16:27 | DRG 641 ==
LOC: ER 14:11 → MEDSURG3 19:38
PROVIDERS: ADMIT Internal Medicine; ATTEND Registered Nurse
PROC: 05H533Z Insertion of Infusion Device into Right Subclavian Vein, Percutaneous Approach (ICD-10-PCS; principal; 2022-02-14)
PROC: B546ZZA Ultrasonography of Right Subclavian Vein, Guidance (ICD-10-PCS; 2022-02-14)
DX: R62.7 Adult failure to thrive (principal); D84.9 Immunodeficiency, unspecified; I50.32 Chronic diastolic (congestive) heart failure; I25.10 Atherosclerotic heart disease of native coronary artery without angina pectoris; D64.9 Anemia, unspecified; G40.909 Epilepsy, unspecified, not intractable, without status epilepticus; E86.0 Dehydration; E53.8 Deficiency of other specified B group vitamins; G89.4 Chronic pain syndrome; Z91.19 Patient's noncompliance with other medical treatment and regimen; Z79.891 Long term (current) use of opiate analgesic; M06.9 Rheumatoid arthritis, unspecified; Z73.6 Limitation of activities due to disability; Z79.02 Long term (current) use of antithrombotics/antiplatelets; Z86.73 Personal history of transient ischemic attack (TIA), and cerebral infarction without residual deficits; M48.061 Spinal stenosis, lumbar region without neurogenic claudication; K59.09 Other constipation; Z98.61 Coronary angioplasty status; I11.0 Hypertensive heart disease with heart failure
CPT/HCPCS: 36415; 70450; 83605; 83735; 83921; 84100; 84403; 84443; 84484; 85025; 85730; 87040; 87086; 93005; A4663; G0378; J0360; J1644; J2060; J2358; J3420; J3475; J7040; J7042; J8499

== ENCOUNTER 2022-02-20 18:27 | Inpatient (IN) | payer MEDICARE, BC ==
[~2022-02-20] VITALS: Ht 172.7 cm; Wt 43.5 kg
[~2022-02-20 18:27] MED LIST changes: +ATOR10TA PO; +CHOL2000 PO; +CYAN10006 IM; -DEXL60CA3 PO; +DICY10CA13 PO; -DOXY-326 PO; -ENOX40DI SQ; +HEPA50007 SQ; -HYDR-4077 PO; +HYDR2TAB7 PO; +LORA-259 PO; +LORA2TAB95 PO; +NALO25TA4 PO; +PANT40TA2 PO; +PROC-11 PO; +PROT30LI PO; +QUET25TA36 PO
[2022-02-20] MEDS ORDERED: MAG HYDROX/AL HYDROX/SIMETH 30 ML LIQUID UDC PO PRN (18:45)
--- NOTE | 2022-02-20 18:55 | NUR ---
Received patient from Med/Surg with Major depression ,vital sign stable ,keep patient comfortable , will endorse to next shift.
[2022-02-20 19:05] VITALS: BP 160/81
[2022-02-20 19:53] VITALS: BP 156/78
[2022-02-20] MEDS ORDERED: LORAZEPAM 0.5 MG TABLET PO PRN (20:00)
--- NOTE | 2022-02-20 20:00 | NUR ---
ADMITTED EARLIER TO [facility] A 66 YEARS OLD MALE ON A 5150 FOR GG. HOLD WILL ON 02/24/24 AT 1545. PER HOLD, PATIENT LIVES WITH HER DAUGHTER AT HOME. HE HAS NOT BEEN EATING AND HIS DEPRESSIONS HAS WORSENED ACCORDING TO HER DAUGHTER. PATIENT WAS RECEIVED IN THE HALLWAY SITTING IN A SOCORRO CHAIR NEAR THE NURSING STATION FOR SAFETY. UPON INTERVIEW, PATIENT IS NON-VERBAL. HIS V/S ARE STABLE. HE IS CALM AND IN NO DISTRESS. PATIENT REFLECTS WHAT IS WRITTEN IN HIS HOLD. HE WAS GIVEN HIS ADVISEMENT WELL HIS BOOKLET OF PATIENT'S RIGHTS WHEN IN A MENTAL HEALTH FACILITIES. PATIENT IS UNDER THE CARE OF DR MARTINEZ. MEDICATION WERE RECONCILED. WILL CONTINUE TO MONITOR Q15 MIN CHECKS.
[2022-02-20] MEDS ORDERED: Medication Not On Formulary EA (Lorazepam (Ativan) 2 MG) PO PRN (20:15)
[2022-02-20] MEDS ORDERED: Medication Not On Formulary EA (Prochlorperazine Maleate (Compazine) 10 MG) PO PRN (20:15)
[2022-02-20] MEDS ORDERED: PROCHLORPERAZINE MALEATE 5 MG TABLET PO PRN (20:30)
[2022-02-20] MEDS: levETIRAcetam 500 MG TABLET PO SCH (20:46)
[2022-02-20] MEDS: TEMAZEPAM 7.5 MG CAPSULE PO PRN (20:46)
[2022-02-20] MEDS: HEPARIN SODIUM,PORCINE 5,000 UNITS/ML VIAL SQ SCH (20:47)
[2022-02-20] MEDS ORDERED: QUETIAPINE FUMARATE 25 MG TABLET PO SCH (21:00)
[2022-02-21] MEDS: PANTOPRAZOLE SODIUM 40 MG TABLET.DR PO SCH (06:44)
[2022-02-21 08:25] LABS: BILIRUBIN,TOTAL 0.7 mg/dL (0.2-1.0); CREATININE 0.8 mg/dL (0.6-1.3); POTASSIUM 3.6 mmol/L (3.5-5.1); TOTAL PROTEIN, SERUM 7.1 g/dL (6.4-8.2)
[2022-02-21 08:42] VITALS: BP 136/64
[2022-02-21] MEDS ORDERED: NALOXEGOL OXALATE PO SCH (09:00)
[2022-02-21] MEDS ORDERED: Medication Not On Formulary EA (Cholecalciferol (Vitamin D3) (Vitamin D3) 1 CAP) PO SCH (09:00)
[2022-02-21] MEDS ORDERED: Medication Not On Formulary EA (Protein Supplement (Prosource) 30 ML) PO SCH (09:00)
[2022-02-21] MEDS ORDERED: PROTEIN HYDR PO SCH (09:00)
[2022-02-21] MEDS ORDERED: WHEY PRO PO SCH (09:00)
[2022-02-21] MEDS ORDERED: AMINO AC PO SCH (09:00)
[2022-02-21] MEDS ORDERED: [UNRECOGNIZED DRUG - OTHER] PO SCH (09:00)
[2022-02-21] MEDS: CHOLECALCIFEROL 1,000 UNIT TABLET PO SCH (09:07)
[2022-02-21] MEDS: levETIRAcetam 500 MG TABLET PO SCH ×2 (09:07→20:10)
[2022-02-21] MEDS: CLOPIDOGREL 75 MG TABLET PO SCH (09:07)
[2022-02-21] MEDS: HEPARIN SODIUM,PORCINE 5,000 UNITS/ML VIAL SQ SCH ×2 (09:08→20:09)
[2022-02-21] MEDS: PROTEIN SUPPLEMENT (PROSTAT) 30 ML LIQUID PO SCH ×2 (09:11→17:06)
[2022-02-21] MEDS: CULTURELLE CAPSULE PO SCH (09:12)
[2022-02-21] MEDS: MINOXIDIL 2.5 MG TABLET PO SCH ×2 (09:13→17:06)
[2022-02-21] MEDS: MOVANTIK 25MG TABLET PO SCH (09:13)
[2022-02-21] MEDS: VENLAFAXINE XR 75 MG TAB.ER.24H PO SCH (12:50)
[2022-02-21] MEDS: LORAZEPAM 0.5 MG TABLET PO SCH ×2 (12:50→17:05)
[2022-02-21] MEDS: risperiDONE-M 0.5 MG TAB.RAPDIS PO SCH ×2 (12:50→17:05)
--- NOTE | 2022-02-21 13:11 | NUR ---
GPS: PT AND DAUGHTER (OVER THE PHONE) REQUESTED FOR A PUREED DIET. PER DAUGHTER, PT CANNOT CHEW ON SOFT FOOD.
--- NOTE | 2022-02-21 13:16 | NUR ---
GPS: PULLED OUT 1300 SET OF MEDICATIONS INCLUDING ATIVAN, EFFEXOR AND RISPERDAL IT WAS PLACED WITH CHOCOLATE PUDDING AND PT WADS ALLERGY TO DAIRY. INFORMED PHARMACY HOMERO.
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
--- NOTE | 2022-02-21 14:36 | NUR ---
GPS: RECEIVED REPORT FROM DARRIUS THAT SISTER KAREN IS ALLOWED TO ENTER THE MHU PROVIDED SHE WILL NOT BE ALLOWED TO BRING ANYTHING INSIDE. SISTER ALSO REQUESTING TO HAVE A WORD WITH PSYCHIATRIST. WILL COMMUNICATE WITH DR MARTINEZ.
--- NOTE | 2022-02-21 15:42 | NUR ---
GPS: RECEIVED PT TODAY ON BED, QUIET, ISOLATIVE AND DEPRESSED. NOT TALKING AND ANSWERING TO WRITERS QUESTION BUT AWAKE AND STARING BLANK. PT WAS ENCOURAGED TO INCREASE FOOD INTAKE. SISTER KAREN CALLED AND ASKED FOR AN UPDATE. SHE MENTIONED SHE IS THE DPOA. SISTER WILL VISIT PT THIS AFTERNOON EVANGELINA 1700. AFTER SPEAKING WITH PSYCHIATRIST, PT STARTED TALKING AND SEEN AMBULATING ALONG THE HALLWAY. SHOWER WAS GIVEN AT 1500. PT TOLERATED WELL. MEDS GIVEN AND ADDED THROUGH APPLE SAUCE PT HAS ALLERGY TO DAIRY.
[2022-02-21 16:55] VITALS: BP 128/63
[2022-02-21] MEDS: ACETAMINOPHEN 325 MG TABLET PO PRN (18:42)
[2022-02-21 19:51] VITALS: BP 130/62
[2022-02-21] MEDS: ATORVASTATIN 10 MG TABLET PO SCH (20:08)
--- NOTE | 2022-02-22 04:44 | NUR ---
GPS: Nursing Notes: Depression: Patient continues to be confused, disoriented, and wanders hallways throughout the day, has incongruent thoughts, is less aggressive when spoken to. Increased accidents of urinating on floors instead of notifying the staff to use the restroom. Disheveled, clueless, and cries at times. "I miss my ." I just want to see my ." "I don't know what's going on with my ." Takes medication, speaks cooperatively when spoken to. Will continue to monitor. Addendum: 02/22/22 at 0606 by SARAH YEUNG LVN Charted on the wrong patient.
[2022-02-22] MEDS: CULTURELLE CAPSULE PO SCH (05:57)
[2022-02-22] MEDS: PANTOPRAZOLE SODIUM 40 MG TABLET.DR PO SCH (05:57)
--- NOTE | 2022-02-22 06:35 | NUR ---
Received patient in bed, selectively mute. Not willing to engage in conversation. A short time later, the patient did agree to eat a few crackers , drink juice and would answer some basic questions. The patient is withdrawn, needs encouragement and persistent help when offering food, fluids , medications and all ADLs. This am, the patient was incontinent of loose stool and did not provide assistance to the staff when being changed. The patient is able to let needs known at times however. His affect is flat and he will not confirm or deny SI. Safety stratiges remain in place.
[2022-02-22 07:30] VITALS: BP 164/80
[2022-02-22] MEDS: risperiDONE-M 0.5 MG TAB.RAPDIS PO SCH ×2 (08:49→17:31)
[2022-02-22] MEDS: MOVANTIK 25MG TABLET PO SCH (08:49)
[2022-02-22] MEDS: CHOLECALCIFEROL 1,000 UNIT TABLET PO SCH (08:49)
[2022-02-22] MEDS: LORAZEPAM 0.5 MG TABLET PO SCH ×3 (08:49→17:31)
[2022-02-22] MEDS: CLOPIDOGREL 75 MG TABLET PO SCH (08:49)
[2022-02-22] MEDS: levETIRAcetam 500 MG TABLET PO SCH ×2 (08:49→21:00)
[2022-02-22] MEDS: MINOXIDIL 2.5 MG TABLET PO SCH (08:50)
[2022-02-22] MEDS: HEPARIN SODIUM,PORCINE 5,000 UNITS/ML VIAL SQ SCH (08:51)
[2022-02-22] MEDS: PROTEIN SUPPLEMENT (PROSTAT) 30 ML LIQUID PO SCH ×3 (08:51→17:38)
--- NOTE | 2022-02-22 10:13 | NUR ---
GPS: PT RECEIVED ON ALIA CHAIR FOR SAFETY, PT FLAT AFFECT, DEPRESSED, DOES NOT RESPOND TO QUESTION. HEAD DOWN AND SELECTIVELY MUTE. WITH EPISODE OF JUMPING OUT OF CHAIR, SAFETY PRECAUTIONS MADE. HELPER METAL HANGING HAD A HARD TIME GIVING MEDICATION BY MOUTH PT TRYING TO SPIT IT. ENCOURAGED PT TO ATTEND GROUP ACTIVITIES OUTSIDE THE PATIO. DENIES PAIN OR DISCOMFORT.
--- NOTE | 2022-02-22 10:56 | NUR ---
TIFFANY Initial Discharge Note: Pt currently resides at home with his daughter, Nubia ([phone])located at [address] [place] [address] ([phone]). Per pt's daughter, she has been his furnace caretaker for 10 years and will continue to provide care after discharge. TIFFANY will continue to work with pt, daughter and MD to ensure a safe and proper discharge plan.
[2022-02-22] MEDS: ACETAMINOPHEN 325 MG TABLET PO PRN (12:33)
[2022-02-22] MEDS: VENLAFAXINE XR 75 MG TAB.ER.24H PO SCH (12:33)
[2022-02-22 16:59] VITALS: BP 121/69
[2022-02-22] MEDS: ENSURE ENLIVE (VAN) 240 ML LIQUID PO SCH ×2 (17:31→17:38)
[2022-02-22 19:44] VITALS: BP 90/52
[2022-02-22 21:00] VITALS: BP 136/74
[2022-02-22] MEDS: ATORVASTATIN 10 MG TABLET PO SCH (21:00)
--- NOTE | 2022-02-22 21:05 | NUR ---
Received patient in bed, asleep. Responds to tactile stimulation but will not speak to this commercial loan underwriter. VS 136/ 74 , 69 pulse O2 sat 100 %. PM medications held at this time until the patient is alert and able to swallow safely. Frequent monitoring of this patient is being done. Fluid and food encouraged when patient is awake. Safety Stratiges in place.
--- NOTE | 2022-02-23 05:50 | NUR ---
Frequent checks made on this patient last night. Early this am, briana care was provided and a Mepilex dressing applied to the sacrum to prevent skin breakdown. Patient up in the jareth chair in the day room. Awake, but still refusing to speak, drink or eat. Staff continuing to encourage oral intake. Safety Stratiges remain in place. This patient had urine output in his diaper, monitoring I&Os closely.
[2022-02-23] MEDS: PANTOPRAZOLE SODIUM 40 MG TABLET.DR PO SCH (06:27)
[2022-02-23 07:30] VITALS: BP 106/73
[2022-02-23] MEDS: PROTEIN SUPPLEMENT (PROSTAT) 30 ML LIQUID PO SCH ×3 (08:00→17:27)
[2022-02-23] MEDS ORDERED: CYANOCOBALAMIN 1000 MCG/ML VIAL IM SCH (09:00)
[2022-02-23] MEDS: ENSURE ENLIVE (VAN) 240 ML LIQUID PO SCH ×3 (09:00→17:27)
[2022-02-23] MEDS: CHOLECALCIFEROL 1,000 UNIT TABLET PO SCH (10:07)
[2022-02-23] MEDS: levETIRAcetam 500 MG TABLET PO SCH ×2 (10:07→20:20)
[2022-02-23] MEDS: risperiDONE-M 0.5 MG TAB.RAPDIS PO SCH ×3 (10:08→17:27)
[2022-02-23] MEDS: CLOPIDOGREL 75 MG TABLET PO SCH (10:08)
[2022-02-23] MEDS: HYDROCHLOROTHIAZIDE 12.5 MG CAPSULE PO SCH (10:09)
[2022-02-23] MEDS: CULTURELLE CAPSULE PO SCH (10:09)
[2022-02-23] MEDS: MOVANTIK 25MG TABLET PO SCH (10:11)
[2022-02-23] MEDS: LORAZEPAM 0.5 MG TABLET PO SCH ×3 (10:14→17:27)
--- NOTE | 2022-02-23 14:16 | NUR ---
TIFFANY Family Contact: TIFFANY spoke with pt's daughter(DPOA) Nubia ([phone]) regarding pt's discharge plan. Nubia informed SW that he will discharge home upon discharge and not to a facility. Nubia inquired questions about medications and treatment and TIFFANY informed her to speak to nursing regarding medication and medical questions. Nubia is aware.
[2022-02-23] MEDS: VENLAFAXINE XR 75 MG TAB.ER.24H PO SCH (14:42)
[2022-02-23 16:00] VITALS: BP 130/70
[2022-02-23] MEDS: ACETAMINOPHEN 325 MG TABLET PO PRN (18:40)
[2022-02-23] MEDS: ATORVASTATIN 10 MG TABLET PO SCH (20:19)
[2022-02-23 20:24] VITALS: BP 115/61
--- NOTE | 2022-02-24 03:52 | NUR ---
GPS NOTES: Received patient in [facility], A&Ox2, he is unkempt and weak looking. Patient is not engaging to conversation as observed today. He was offered snacks and fluid, but refused. He is med compliant. He stays mostly sleeping during shift. Frequent monitoring observed, no distress noted. He was kept safe at all times. Tita care provided by me and CONSULTING INTERN on duty. Needs met and attended as ordered.
[2022-02-24] MEDS: PANTOPRAZOLE SODIUM 40 MG TABLET.DR PO SCH (06:28)
[2022-02-24 07:30] VITALS: BP 159/69
[2022-02-24] MEDS: levETIRAcetam 500 MG TABLET PO SCH ×2 (08:39→20:24)
[2022-02-24] MEDS: CLOPIDOGREL 75 MG TABLET PO SCH (08:39)
[2022-02-24] MEDS: risperiDONE-M 0.5 MG TAB.RAPDIS PO SCH ×3 (08:39→16:52)
[2022-02-24] MEDS: PROTEIN SUPPLEMENT (PROSTAT) 30 ML LIQUID PO SCH ×3 (08:40→16:57)
[2022-02-24] MEDS: CHOLECALCIFEROL 1,000 UNIT TABLET PO SCH (08:40)
[2022-02-24] MEDS: MOVANTIK 25MG TABLET PO SCH (09:00)
[2022-02-24] MEDS: LORAZEPAM 0.5 MG TABLET PO SCH (09:06)
[2022-02-24] MEDS: HYDROCHLOROTHIAZIDE 12.5 MG CAPSULE PO SCH (09:06)
[2022-02-24] MEDS: CULTURELLE CAPSULE PO SCH (09:06)
[2022-02-24] MEDS: ENSURE ENLIVE (VAN) 240 ML LIQUID PO SCH ×3 (09:08→16:56)
[2022-02-24] MEDS: DIVALPROEX SPRINKLE 125 MG CAP.SPRINK PO SCH ×2 (10:00→16:52)
[2022-02-24] MEDS: VENLAFAXINE XR 75 MG TAB.ER.24H PO SCH (12:23)
[2022-02-24] MEDS: LORAZEPAM 1 MG TABLET PO SCH ×2 (12:24→16:03)
[2022-02-24] MEDS ORDERED: LORAZEPAM 0.5 MG TABLET PO SCH (13:00)
--- NOTE | 2022-02-24 14:45 | NUR ---
Received patient up to jareth-chair total care to all ADLS, compliant with all po medication , non verbal responsive no s/s of pain or discomfort at all time. patient with poor appetite requested total fed , no aggressive or agitated noted ,will continue close monitoring.
--- NOTE | 2022-02-24 15:55 | NUR ---
SW Family Contact: Pt's daughter(DPOA) Nubia ([phone]) contacted this SW and left a voicemail stating her concerns about the pt regressing and continuing care here. Nubia stated she would like a different Psychiatrist and the pt to discharge back home.
[2022-02-24 16:00] VITALS: BP 128/69
--- NOTE | 2022-02-24 16:02 | NUR ---
TIFFANY Family Contact: TIFFANY contacted Pt's daughter(DPCADY) Nubia ([phone]) and informed her that this telegraphic typewriter mechanic received her voicemail and contacted the Clinical Sciences Professor, Dr. Kirk, Director of the unit, Dr. Xavier and the pt's Psychiatrist, Dr. Wolfe regarding Nubia's concerns of the treatment plan and request for change of Psychiatrist. TIFFANY informed her that the Clinical Sciences Professor, Dr. Kirk will be in contact with her this weekend to discuss the patient's treatment plan and discharge plan. Nubia is informed and stated she is thankful.
[2022-02-24] MEDS ORDERED: LORAZEPAM 1 MG TABLET PO SCH (17:00)
[2022-02-24 19:58] VITALS: BP 123/69
[2022-02-24] MEDS: ATORVASTATIN 10 MG TABLET PO SCH (20:24)
[2022-02-25 04:34] LABS: *BILIRUBIN,URIN NEGATIVE (NEGATIVE); *BLOOD, URINE NEGATIVE (NEGATIVE); *CLARITY,URINE CLEAR (CLEAR); *COLOR,URINE YELLOW (YELLOW); *KETONES,URINE NEGATIVE (NEGATIVE); *UROBILINOGEN,URINE 0.2 E.U./dl (NORMAL); LEUKOCYTE ESTERASE ,URINE NEGATIVE (NEGATIVE); NITRITE, URINE NEGATIVE (NEGATIVE); UGLUCOSE NEGATIVE (NEGATIVE)
[2022-02-25 04:54] LABS: *AMPHETAMINE, URINE NEGATIVE (NEGATIVE); *CANNABINOID, URINE NEGATIVE (NEGATIVE); *COCCAINE, URINE NEGATIVE (NEGATIVE); *OPIATE, URINE POSITIVE (NEGATIVE); *PHENCYCLIDINE SCREEN,URINE NEGATIVE (NEGATIVE)
--- NOTE | 2022-02-25 04:58 | NUR ---
Received patient in bed. Eyes shut and laying still. The patient did not respond to verbal stimuli , but did open his eyes when touched. Through out the shift , the patient remained mute. This science writer was able to sit patient up and feed him some Sherbert and assisted patient in drinking water. He requires total assistance with all ADLs and does not help in any way. There has been no facial expressions or communication with this science writer ,despite multiple attempts to engage with the patient on any level possible. A urine sample was obtained and sent to the lab for drug tox screen per order, along with a UA. Frequent turning and repositioning during the night was done in order to prevent skin breakdown. VS are stable and being monitored along with I & O s. The dayshift CUSTOMER SUCCESS INTERN endorsed to this science writer that the patient would eat only when he is feed by his daughter during her visits. Safety Stratiges are in place. Observation of the patients level of consciousness is ongoing. No acute distress noted at this time.
[2022-02-25] MEDS: PANTOPRAZOLE SODIUM 40 MG TABLET.DR PO SCH (06:35)
--- NOTE | 2022-02-25 06:36 | NUR ---
Patient is too sleepy to safely swallow the am Protonix at this time. Will try again later.
[2022-02-25 07:46] VITALS: BP 157/76
[2022-02-25 07:47] LABS: HEMATOCRIT 34.8 % (36.7-47.1); MEAN CORPUSCULAR HEMOGLOBIN 29.8 uug (23.8-33.4); PLATELET COUNT (AUTO) 223 K/uL (152-348)
[2022-02-25 08:02] LABS: BILIRUBIN,TOTAL 0.5 mg/dL (0.2-1.0); CREATININE 0.8 mg/dL (0.6-1.3); POTASSIUM 3.7 mmol/L (3.5-5.1)
[2022-02-25] MEDS: DIVALPROEX SPRINKLE 125 MG CAP.SPRINK PO SCH ×2 (08:29→16:20)
[2022-02-25] MEDS: levETIRAcetam 500 MG TABLET PO SCH ×2 (08:29→20:23)
[2022-02-25] MEDS: CLOPIDOGREL 75 MG TABLET PO SCH ×2 (08:29→09:00)
[2022-02-25] MEDS: risperiDONE-M 0.5 MG TAB.RAPDIS PO SCH ×2 (08:29→20:23)
[2022-02-25] MEDS: CHOLECALCIFEROL 1,000 UNIT TABLET PO SCH (08:29)
[2022-02-25] MEDS: HYDROCHLOROTHIAZIDE 12.5 MG CAPSULE PO SCH (08:30)
[2022-02-25] MEDS: ENSURE ENLIVE (VAN) 240 ML LIQUID PO SCH ×3 (08:31→16:22)
[2022-02-25] MEDS: PROTEIN SUPPLEMENT (PROSTAT) 30 ML LIQUID PO SCH ×3 (08:31→16:23)
[2022-02-25] MEDS: MOVANTIK 25MG TABLET PO SCH (08:33)
[2022-02-25] MEDS ORDERED: risperiDONE-M 0.5 MG TAB.RAPDIS PO SCH (09:00)
[2022-02-25] MEDS ORDERED: LORAZEPAM 0.5 MG TABLET PO SCH (09:00)
[2022-02-25] MEDS: CULTURELLE CAPSULE PO SCH (09:07)
[2022-02-25] MEDS: LORAZEPAM 0.5 MG TABLET PO SCH ×2 (09:32→16:20)
[2022-02-25 11:02] LABS: *AMPHETAMINE, URINE NEGATIVE (NEGATIVE); *CANNABINOID, URINE NEGATIVE (NEGATIVE); *COCCAINE, URINE NEGATIVE (NEGATIVE); *OPIATE, URINE POSITIVE (NEGATIVE); *PHENCYCLIDINE SCREEN,URINE NEGATIVE (NEGATIVE)
[2022-02-25 11:56] VITALS: BP 152/77
[2022-02-25] MEDS: VENLAFAXINE XR 75 MG TAB.ER.24H PO SCH (12:00)
--- NOTE | 2022-02-25 14:43 | NUR ---
patient is awake, assisted with meals, able to tolerated meals without any difficulties, no cough noted during meals, patient room searched very careful, no medications noted in the room. no acute distress noted at this time, patient was straight catheterized and noted with mild bleeding during catheterization which is resolved.
[2022-02-25 15:02] VITALS: BP 133/80
--- NOTE | 2022-02-25 15:55 | NUR ---
patient daughter is here visiting patient, in direct observation of nursing, daughter was screaming and being loud. appropriate questions are answered mannerly, suggested daughter to calm down, nurses understand your concern and message will be given to dr rucker.
--- NOTE | 2022-02-25 16:05 | NUR ---
daughter request to talk to dr rucker, this marketing writer spoke to dr rucker, per dr rucker he is only covering for weekend, dr petersen can call daughter on Sunday. will endorse accordingly.
--- NOTE | 2022-02-25 17:34 | NUR ---
dr rucker spoke to daughter on the phone.
[2022-02-25 20:00] VITALS: BP 110/83
[2022-02-25] MEDS: ATORVASTATIN 10 MG TABLET PO SCH (20:23)
--- NOTE | 2022-02-25 20:45 | NUR ---
RECEIVED PATIENT IN THE HALLWAY. HE IS SITTING IN A SOC[employer]RO CHAIR CLOSED TO THE NURSING STATION FOR SAFETY. HE IS NOTED A/O X 1. CALM AND COOPERATIVE UPON APPROACHED. HE IS ABLE TO ANSWER YES OR NO QUESTION BUT HE IS UNABLE TO HAVE A MEANINGFUL CONVERSATION WITH THIS VICE PROVOST. HE APPEARS DEPRESSED, HIS MOOD IS LOW, HIS AFFECT IS FLAT. PATIENT REQUIRED ASSISTANCE WITH ADLs. HIS GAIT IS UNSTEADY. PATIENT IS REASSURED FOR HIS SAFETY. SAFETY AND FALL PRECAUTIONS ARE IN PLACE. V/S ARE STABLE. PT IN NO DISTRESS. PO FLUIDS AND SNACKS WERE GIVEN, HE WAS ABLE TO DRINK JUICE AND WATER(120CC). HE REFUSED A SANDWICH OR ANY OTHER SNACKS. WILL CONTINUE TO MONITOR.
[2022-02-25] MEDS: TEMAZEPAM 7.5 MG CAPSULE PO PRN (23:14)
[2022-02-26] MEDS: PANTOPRAZOLE SODIUM 40 MG TABLET.DR PO SCH (06:34)
[2022-02-26 07:30] VITALS: BP 144/76
[2022-02-26] MEDS: DIVALPROEX SPRINKLE 125 MG CAP.SPRINK PO SCH ×2 (08:13→16:19)
[2022-02-26] MEDS: LORAZEPAM 0.5 MG TABLET PO SCH ×2 (08:13→16:20)
[2022-02-26] MEDS: CLOPIDOGREL 75 MG TABLET PO SCH (08:13)
[2022-02-26] MEDS: levETIRAcetam 500 MG TABLET PO SCH ×2 (08:13→20:13)
[2022-02-26] MEDS: CHOLECALCIFEROL 1,000 UNIT TABLET PO SCH (08:14)
[2022-02-26] MEDS: HYDROCHLOROTHIAZIDE 12.5 MG CAPSULE PO SCH (08:15)
[2022-02-26] MEDS: PROTEIN SUPPLEMENT (PROSTAT) 30 ML LIQUID PO SCH ×3 (08:16→16:21)
[2022-02-26] MEDS: CULTURELLE CAPSULE PO SCH (08:16)
[2022-02-26] MEDS: MOVANTIK 25MG TABLET PO SCH (08:17)
[2022-02-26] MEDS: ENSURE ENLIVE (VAN) 240 ML LIQUID PO SCH ×3 (08:17→16:20)
[2022-02-26] MEDS: VENLAFAXINE XR 75 MG TAB.ER.24H PO SCH (12:06)
--- NOTE | 2022-02-26 15:37 | NUR ---
patient is up to Magalys-chair AAO x2 ,compliant with all medication,no s/s of pain or discomfort.Observed daughter during visiting ,keep patient in hallway .patient able to ambulate better with one person assisted. unable to attend in group activity ,will continue close monitoring.
[2022-02-26 16:00] VITALS: BP 140/85
[2022-02-26] MEDS: ACETAMINOPHEN 325 MG TABLET PO PRN (17:11)
[2022-02-26 19:52] VITALS: BP 113/64
[2022-02-26] MEDS: ATORVASTATIN 10 MG TABLET PO SCH (20:13)
[2022-02-26] MEDS: risperiDONE-M 0.5 MG TAB.RAPDIS PO SCH (20:13)
--- NOTE | 2022-02-26 20:30 | NUR ---
RECEIVED PATIENT SITTING IN A SOCORRO CHAIR CLOSED TO THE NURSING STATION. HE IS NOTED A/O X 1 TO 2. HE IS CALM AND PLEASANT UPON APPROACHED. HE IS ABLE TO COMPLY WITH PLAN OF CARE. SAFETY AND FALL PRECAUTIONS ARE IN PLACE. HIS V/S ARE STABLE, HE IS IN NO DISTRESS. PO FLUIDS AND SNACKS WERE GIVEN. WILL CONTINUE TO MONITOR
[2022-02-27] MEDS: PANTOPRAZOLE SODIUM 40 MG TABLET.DR PO SCH (06:33)
--- NOTE | 2022-02-27 06:50 | NUR ---
patient slept for approx 7 hrs through the night. No behaviral issues noted throughout the shift. patient remains compliant with medication regiment diet and care. will continue to monitor.
[2022-02-27 07:48] VITALS: BP 166/73
[2022-02-27] MEDS: levETIRAcetam 500 MG TABLET PO SCH ×2 (08:26→20:49)
[2022-02-27] MEDS: DIVALPROEX SPRINKLE 125 MG CAP.SPRINK PO SCH ×3 (08:26→16:53)
[2022-02-27] MEDS: PROTEIN SUPPLEMENT (PROSTAT) 30 ML LIQUID PO SCH ×3 (08:26→16:56)
[2022-02-27] MEDS: CLOPIDOGREL 75 MG TABLET PO SCH (08:26)
[2022-02-27] MEDS: MOVANTIK 25MG TABLET PO SCH (08:26)
[2022-02-27] MEDS: HYDROCHLOROTHIAZIDE 12.5 MG CAPSULE PO SCH (08:28)
[2022-02-27] MEDS: CULTURELLE CAPSULE PO SCH (08:28)
[2022-02-27] MEDS: CHOLECALCIFEROL 1,000 UNIT TABLET PO SCH (08:30)
[2022-02-27] MEDS: ENSURE ENLIVE (VAN) 240 ML LIQUID PO SCH ×3 (08:30→16:53)
[2022-02-27] MEDS: VENLAFAXINE XR 75 MG TAB.ER.24H PO SCH (12:18)
[2022-02-27] MEDS ORDERED: VENLAFAXINE XR 75 MG TAB.ER.24H PO SCH (13:00)
[2022-02-27] MEDS ORDERED: VENLAFAXINE XR 75 MG TAB.ER.24H PO ONE (13:00)
--- NOTE | 2022-02-27 13:45 | NUR ---
14 PCH DONE WITH PROBABLE CAUSE ON GRAVE DISABILITY ONLY. PT REFUSED ATTENDING.
[2022-02-27] MEDS: CYANOCOBALAMIN 1000 MCG/ML VIAL IM SCH (14:48)
[2022-02-27 17:22] VITALS: BP 117/74
[2022-02-27 19:43] VITALS: BP 151/79
[2022-02-27] MEDS: risperiDONE-M 0.5 MG TAB.RAPDIS PO SCH (20:49)
[2022-02-27] MEDS: ATORVASTATIN 10 MG TABLET PO SCH (20:49)
--- NOTE | 2022-02-27 21:00 | NUR ---
RECEIVED PATIENT SITTING IN A SOCORRO CHAIR CLOSED TO THE NURSING STATION. HE IS NOTED A/O X 1 TO 2. HE IS CALM AND PLEASANT UPON APPROACHED. HE IS ABLE TO ANSWER SIMPLE QUESTIONS. HE WAS ASKED IF HE WAS FEELING SAD, HE SAID "YES" WHEN ASKED TO "TELL ME MORE" HE DIDN'T REPLY BACK. PATIENT IS ABLE TO COMPLY HIS MEDICATION REGIMENT DIET AND WITH PLAN OF CARE. HE IS REASSURED FOR HIS SAFETY. SAFETY AND FALL PRECAUTIONS ARE IN PLACE. HIS V/S ARE STABLE, HE IS IN NO DISTRESS. PO FLUIDS AND SNACKS WERE GIVEN. WILL CONTINUE TO MONITOR
[2022-02-27] MEDS: MAGNESIUM HYDROXIDE 30 ML LIQUID UDC PO PRN (21:34)
[2022-02-27] MEDS: TEMAZEPAM 7.5 MG CAPSULE PO PRN (22:10)
[2022-02-28] MEDS: PANTOPRAZOLE SODIUM 40 MG TABLET.DR PO SCH (07:18)
[2022-02-28 07:32] VITALS: BP 138/72
[2022-02-28] MEDS: CHOLECALCIFEROL 1,000 UNIT TABLET PO SCH (08:49)
[2022-02-28] MEDS: levETIRAcetam 500 MG TABLET PO SCH ×2 (08:49→20:31)
[2022-02-28] MEDS: CULTURELLE CAPSULE PO SCH (08:49)
[2022-02-28] MEDS: DIVALPROEX SPRINKLE 125 MG CAP.SPRINK PO SCH ×3 (08:49→17:44)
[2022-02-28] MEDS: HYDROCHLOROTHIAZIDE 12.5 MG CAPSULE PO SCH (08:49)
[2022-02-28] MEDS: CLOPIDOGREL 75 MG TABLET PO SCH (08:49)
--- NOTE | 2022-02-28 08:58 | NUR ---
Firearms Report: Mobile Sales Consultant completed and submitted a [employer] firearms report for 5150 grave disability certifications. A copy of report has been placed in patient chart.
[2022-02-28] MEDS: ENSURE ENLIVE (VAN) 240 ML LIQUID PO SCH ×3 (09:03→17:44)
[2022-02-28] MEDS: PROTEIN SUPPLEMENT (PROSTAT) 30 ML LIQUID PO SCH ×3 (09:04→17:44)
[2022-02-28] MEDS: CYANOCOBALAMIN 1000 MCG/ML VIAL IM SCH (09:34)
--- NOTE | 2022-02-28 10:08 | NUR ---
TIFFANY Family Contact: SW contacted pt's daughter(DPCADY), Nubia ([phone]) with the psychiatrist, Dr. Wolfe per Nubia's request. Nubia verbalized her concerns about the pt's stay at [facility] and her wish to take the pt home under her care. Nubia verbalized to this customs entry writer and Dr. 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 Nubia is aware that there is an active APS case. Dr. Wolfe informed Nubia that the hospital cannot discharge the pt home with her until further evaluation is done by APS and reported back to us. Nubia stated she understands. Nubia continued to discuss further medical and psychiatric hx of the pt with Dr. Wolfe and the current treatment plan. Please see Dr. Wolfe's note on 02/27/22 for further details. Nubia was informed that this customs entry writer will contact her with further APS updates as available to discuss pt's safe discharge plan. APS intake #[id number]. APS ed case manager: Urszula ([phone]).
--- NOTE | 2022-02-28 12:26 | NUR ---
TIFFANY Family Contact: Pt's daughter(DPOA), Nubia ([phone]) spoke with this SW in person during visitation and continued to question the APS report made by this hospital. Nubia stated ALEXD went to her house yesterday to assess why her father is malnourished and evaluate his living arrangement. Nubia appeared overwhelmed and teary and stated she does not understand why an APS report was made. Nubia alleged that nothing happened on the 3rd floor (where pt was previously admitted prior to arriving to [facility]) that would be reportable. She continued to state that she thinks it is regarding the pt leaving AMA from the medical floor 8 weeks ago. SW informed her that the APS report was made on 02/20/22 and Nubia continued to appear confused. SW stated that APS will continue to be in contact with her regarding details and she can acquire further details from them. Nubia stated she understands that she needs to wait for APS to physically evaluate the pt and clear the pt to safely return home under her care. Nubia was cooperative. TIFFANY stated she will update her with any new information once available.
[2022-02-28] MEDS: MOVANTIK 25MG TABLET PO SCH (12:41)
[2022-02-28] MEDS: VENLAFAXINE XR 150 MG CAP.SR.24H PO SCH (12:55)
[2022-02-28 15:46] VITALS: BP 154/78
--- NOTE | 2022-02-28 17:58 | NUR ---
GPS: PT ON GERICHAIR FOR SAFETY. PT SELECTIVELY MUTE AND GIVING THE PARACHUTE TAPER A HARD TIME IN GIVING THE PT MEDICATION. EVEN THE DAUGHTER WAS HAVING A HARD TIME ASSISTING THE PT WITH FEEDING. PT WAS WITH DAUGHTER AT LUNCH TIME AND DINNER TIME. PT WITH MILD TREMOR NOTED ON HAND AND MOUTH. OFFERED MILK OF MAGNESIA TO PT WITH DAUGHTER BESIDE DAUGHTER WAS COMPLAINING OF CONSTIPATION, BUT DAUGHTER SAID MOM IS NOT EFFECTIVE, INFORMED DAUGHTER THAT PT GOT MOM LAST NIGHT. WILL TRY TO GIVE ANOTHER ONE TONIGHT. ENCOURAGED PT TO INCREASE FOOD AND FLUID INTAKE. DAUGHTER REQUESTING FOR [employer] OFFICER TO CALL HER. WILL NOTIFY [employer] OFFICER.
--- NOTE | 2022-02-28 18:34 | NUR ---
GPS: REPORTED TO PSYCHIATRIST RE: MILD TREMORS NOTED ON PT HANDS AND MOUTH. CARRIED OUT ORDER FROM PSYCHIATRIST COGENTIN 0.5MG PO BID. PER PSYCHIATRIST TO CONTINUE [facility]. WILL NOTIFY DAUGHTER. ALSO CALLED [facility] TO NOTIFY DR MONO ROMAN PER DAUGHTER'S REQUEST.
[2022-02-28 20:09] VITALS: BP 116/73
[2022-02-28] MEDS: risperiDONE-M 0.5 MG TAB.RAPDIS PO SCH (20:31)
[2022-02-28] MEDS: BENZTROPINE MESYLATE 0.5 MG TABLET PO SCH (20:31)
[2022-02-28] MEDS: ATORVASTATIN 10 MG TABLET PO SCH (20:32)
[2022-02-28] MEDS: MAGNESIUM HYDROXIDE 30 ML LIQUID UDC PO PRN (20:32)
--- NOTE | 2022-02-28 22:01 | NUR ---
GPS: Remains non-verbal/selectively mute most of the time. Med.compliant with some prompting from staff. Fluids/snacks encouraged. No facial grimacing of pain observed. Repositioned for comfort. Needs attended. Will continue to monitor.
[2022-02-28] MEDS: TEMAZEPAM 7.5 MG CAPSULE PO PRN (22:46)
[2022-03-01 05:27] VITALS: BP 132/78
[2022-03-01] MEDS: PANTOPRAZOLE SODIUM 40 MG TABLET.DR PO SCH (06:04)
--- NOTE | 2022-03-01 06:05 | NUR ---
GPS: Pt.slept poorly last night. Only slept for 1.45 last night despite receiving a sleeping pill prn. VSS. Denies pain at this time. Able to answer simple questions when asked by staff. Po fluids encouraged and taken fairly. No s/s of aspiration noted. Repositioned for comfort. Bed alarm on for safety. Will continue to monitor.
--- NOTE | 2022-03-01 06:50 | NUR ---
GPS: Pt.remains without any BM. MOM given last night ineffective. Prune juice was also given earlier. Endorsed to incoming nurse to f/u. Denies abd.discomfort/n/v noted.
[2022-03-01 07:30] VITALS: BP 132/80
[2022-03-01] MEDS: CHOLECALCIFEROL 1,000 UNIT TABLET PO SCH (08:25)
[2022-03-01] MEDS: levETIRAcetam 500 MG TABLET PO SCH ×2 (08:25→20:35)
[2022-03-01] MEDS: BENZTROPINE MESYLATE 0.5 MG TABLET PO SCH (08:25)
[2022-03-01] MEDS: CULTURELLE CAPSULE PO SCH (08:25)
[2022-03-01] MEDS: CLOPIDOGREL 75 MG TABLET PO SCH (08:25)
[2022-03-01] MEDS: CYANOCOBALAMIN 1000 MCG/ML VIAL IM SCH (08:25)
[2022-03-01] MEDS: DIVALPROEX SPRINKLE 125 MG CAP.SPRINK PO SCH ×3 (08:25→18:00)
[2022-03-01] MEDS: HYDROCHLOROTHIAZIDE 12.5 MG CAPSULE PO SCH (08:26)
[2022-03-01] MEDS: MOVANTIK 25MG TABLET PO SCH (08:26)
[2022-03-01] MEDS: PROTEIN SUPPLEMENT (PROSTAT) 30 ML LIQUID PO SCH ×3 (08:27→18:01)
[2022-03-01] MEDS: ENSURE ENLIVE (VAN) 240 ML LIQUID PO SCH ×3 (08:27→18:00)
[2022-03-01] MEDS: ACETAMINOPHEN 325 MG TABLET PO PRN (12:48)
[2022-03-01] MEDS: VENLAFAXINE XR 150 MG CAP.SR.24H PO SCH (12:48)
[2022-03-01 16:00] VITALS: BP 126/72
--- NOTE | 2022-03-01 18:59 | NUR ---
GPS: [facility] COMPLAINT OF BACK PAIN AND WAS GIVEN TYLENOL AND TOLERATED WELL. PT DAUGHTER CAME FOR A VISIT AND KONSTANTIN DEMANDING AND MANIPULATIVE. DAUGHTER STATED "THE PT IS NOT DOING WELL BECAUSE HE'S NOT GETTING THE RIGHT MEDICATIONS, THAT'S WHY HE DOES NOT WANT TO TAKE THE MEDS AND I DON'T LIKE HIM TAKING THAT MEDS TOO". WILL HAVE TO MONITOR FOR SAFETY AND SECURITY AND CONTINUE TO PLACE THE PT IN FRONT OF NURSES STATION WHEN DAUGHTER COMES FOR VISIT.
[2022-03-01 20:20] VITALS: BP 124/67
[2022-03-01] MEDS: ATORVASTATIN 10 MG TABLET PO SCH (20:27)
[2022-03-01] MEDS: MAGNESIUM HYDROXIDE 30 ML LIQUID UDC PO PRN (22:05)
[2022-03-02] MEDS: MAGNESIUM HYDROXIDE 30 ML LIQUID UDC PO PRN (06:05)
[2022-03-02] MEDS: PANTOPRAZOLE SODIUM 40 MG TABLET.DR PO SCH (06:07)
--- NOTE | 2022-03-02 06:44 | NUR ---
GPS: Pt.slept 10.30 last night. Denied pain when asked earlier. Showered by staff and was ambulated by staff using hand held assist as tona. Fluids tona. fairly. Pt. answered some questions by staff. Discouraged from being selectively mute. No seizure episodes noted. Will continue to monitor.
[2022-03-02 07:30] VITALS: BP 132/78
--- NOTE | 2022-03-02 07:45 | NUR ---
GPS: Received patient sitting up in jareth chair.b/p 132/78 , Hr 98,resp 22 temp 100.4 sat 83-85% in room air. pt placed on 02 @ 2L VIA N/C. Dr. Trino lee made aware via text message. tylenol 650 mg po prn given for high temp, encouraged po fluid. now patient 02 sat @ 91 to 93% with 02 2L via n/c. charge nurse made aware. continue monitoring for safety.
[2022-03-02] MEDS: ACETAMINOPHEN 325 MG TABLET PO PRN (07:58)
[2022-03-02 08:00] VITALS: BP 132/78
[2022-03-02] MEDS: PROTEIN SUPPLEMENT (PROSTAT) 30 ML LIQUID PO SCH ×2 (08:17→11:59)
[2022-03-02 08:40] LABS: HEMATOCRIT 37.1 % (36.7-47.1); MEAN CORPUSCULAR HEMOGLOBIN 30.7 uug (23.8-33.4); MEAN CORPUSCULAR VOLUME 88.3 fL (73.0-96.2); PLATELET COUNT (AUTO) 205 K/uL (152-348)
--- NOTE | 2022-03-02 08:45 | NUR ---
patient resting quitly. no resp eboni and unlabored. temp 98.9 now. continue plan of care.
[2022-03-02 08:46] LABS: CREATININE 1.1 mg/dL (0.6-1.3); POTASSIUM 4.3 mmol/L (3.5-5.1)
[2022-03-02 08:53] LABS: BILIRUBIN,TOTAL 0.4 mg/dL (0.2-1.0); TOTAL PROTEIN, SERUM 7.6 g/dL (6.4-8.2)
[2022-03-02] MEDS: DIVALPROEX SPRINKLE 125 MG CAP.SPRINK PO SCH ×2 (09:11→12:31)
[2022-03-02] MEDS: levETIRAcetam 500 MG TABLET PO SCH (09:11)
[2022-03-02] MEDS: MOVANTIK 25MG TABLET PO SCH (09:12)
[2022-03-02] MEDS: CULTURELLE CAPSULE PO SCH (09:12)
[2022-03-02] MEDS: HYDROCHLOROTHIAZIDE 12.5 MG CAPSULE PO SCH (09:12)
[2022-03-02] MEDS: ENSURE ENLIVE (VAN) 240 ML LIQUID PO SCH ×2 (09:12→12:26)
[2022-03-02] MEDS: CHOLECALCIFEROL 1,000 UNIT TABLET PO SCH (09:12)
[2022-03-02] MEDS: CYANOCOBALAMIN 1000 MCG/ML VIAL IM SCH (09:12)
[2022-03-02] MEDS: CLOPIDOGREL 75 MG TABLET PO SCH (09:12)
--- NOTE | 2022-03-02 10:45 | NUR ---
rosa Song came to assessed the patient. covid-19 test sent to lab. patient resting no s/s of pain or any distress noted at this time. continue plan of care.
--- NOTE | 2022-03-02 11:16 | NUR ---
received order to transfer patient to med surg unit for low saturation.
[2022-03-02] MEDS: VENLAFAXINE XR 150 MG CAP.SR.24H PO SCH (12:28)
[2022-03-02 14:01] VITALS: BP 143/82
--- NOTE | 2022-03-02 15:13 | NUR ---
Gps/Inspector Machine Cut Glass- Discharged to Medical floor under the care of Trino Coats ACCOUNT SERVICES MANAGER to room #308 , left unit via jareth-chair, with 02 at 2 liters via NC. Daughter Angela was fully aware of discharge plan.All belongings was sent with patient .
[2022-03-02] MEDS ORDERED: VENL150C2 PO (20:18)
[2022-03-02] MEDS ORDERED: LACT-246 PO (20:18)
[2022-03-02] MEDS ORDERED: HYDR12.55 PO (20:18)
[2022-03-03] MEDS ORDERED: DIVA125C2 PO (06:50)
--- NOTE | 2022-03-03 08:08 | NUR ---
SW Transfer Note: Pt is alert and oriented x2. Pt appears with a flat affect and selectively mute. Pt discharged to Med Floor per PERFORATOR LOADER, Trino due to Acute Hypoxic Respiratory Failure. Per psychiatrist, Dr. Wolfe, pt is no longer on a hold. Pt's discharge plan update is to return home with his daughter, Angela (DPCADY) ([phone]) and under her care located at [address] [place] [address].
== END 2022-03-02 15:10 | disposition short-term general hospital (02) | DRG 885 ==
LOC: GPS 18:27
PROVIDERS: ADMIT Psychiatry & Neurology Psychosomatic Medicine; ATTEND Internal Medicine
DX: F33.2 Major depressive disorder, recurrent severe without psychotic features (principal); F01.50 Vascular dementia, unspecified severity, without behavioral disturbance, psychotic disturbance, mood disturbance, and anxiety; I11.0 Hypertensive heart disease with heart failure; I69.354 Hemiplegia and hemiparesis following cerebral infarction affecting left non-dominant side; D84.9 Immunodeficiency, unspecified; Z68.1 Body mass index [BMI] 19.9 or less, adult; E44.0 Moderate protein-calorie malnutrition; F39 Unspecified mood [affective] disorder; G40.909 Epilepsy, unspecified, not intractable, without status epilepticus; D64.9 Anemia, unspecified; E78.5 Hyperlipidemia, unspecified; I25.10 Atherosclerotic heart disease of native coronary artery without angina pectoris; Z91.14 Patient's other noncompliance with medication regimen; M06.9 Rheumatoid arthritis, unspecified; G89.29 Other chronic pain; I50.9 Heart failure, unspecified; R62.7 Adult failure to thrive; M19.90 Unspecified osteoarthritis, unspecified site; Z79.891 Long term (current) use of opiate analgesic; Z91.19 Patient's noncompliance with other medical treatment and regimen; R41.9 Unspecified symptoms and signs involving cognitive functions and awareness; E29.1 Testicular hypofunction; E53.8 Deficiency of other specified B group vitamins; Z20.822 Contact with and (suspected) exposure to COVID-19
CPT/HCPCS: 36415; 85025; 87040; 87086; A6209; C1758; J1644; J3420; J8499

== ENCOUNTER 2022-03-02 15:56 | Inpatient (IN) | payer MEDICARE, BC ==
[~2022-03-02] VITALS: Ht 170.2 cm; Wt 45.4 kg
[~2022-03-02 15:56] MED LIST changes: -LORA-259 PO
[2022-03-02 16:26] VITALS: BP 144/90
[2022-03-02] MEDS ORDERED: REMEDY ESSENTIAL ZINC PASTE 113 GM TP PRN (17:15)
[2022-03-02] MEDS ORDERED: ONDANSETRON 4 MG/2 ML VIAL IV PRN (17:15)
[2022-03-02] MEDS: CEFEPIME HCL 1 G in IV DEXTROSE 5% 50 ML IV SCH (18:36)
[2022-03-02] MEDS: MIRALAX 17 GM POWD.PACK PO SCH (18:39)
[2022-03-02 20:00] VITALS: BP 138/71
[2022-03-02] MEDS: VANCOMYCIN IV 500 MG in IV DEXTROSE 5% 100 ML IV SCH (20:09)
[2022-03-02] MEDS ORDERED: LACT-246 PO (20:18)
[2022-03-02] MEDS ORDERED: VENL150C2 PO (20:18)
[2022-03-02] MEDS ORDERED: HYDR12.55 PO (20:18)
[2022-03-02] MEDS ORDERED: LORAZEPAM 1 MG TABLET PO PRN (23:45)
[2022-03-03] VITALS: BP 141/80
[2022-03-03] MEDS: CEFEPIME HCL 1 G in IV DEXTROSE 5% 50 ML IV SCH ×3 (01:29→18:25)
[2022-03-03] MEDS ORDERED: PROCHLORPERAZINE MALEATE 5 MG TABLET PO PRN (01:30)
[2022-03-03] MEDS: IV NS 1000 ML 1,000 ML IV PRN (02:39)
[2022-03-03] MEDS: MAGNESIUM HYDROXIDE 30 ML LIQUID UDC PO PRN ×2 (03:08→20:28)
[2022-03-03 04:00] VITALS: BP 153/76
[2022-03-03] MEDS: ACETAMINOPHEN 325 MG TABLET PO PRN (04:50)
[2022-03-03 05:56] LABS: ABG BASE EXCESS 3.9 mmol/L; ABG PCO2 31.2 mmHg (35.0-45.0); ABG PH 7.539 (7.350-7.450); ABG PO2 71.8 mmHg (75.0-100.0); ABG SITE LEFT BRACHIAL; COHb 0.3 % (0.5-1.5); MetHb 0.3 % (0.0-1.5); O2Hb 94.6 % (94.0-97.0); VENT MODE Nasal Cannula
[2022-03-03] MEDS: PANTOPRAZOLE SODIUM 40 MG TABLET.DR PO SCH (06:06)
[2022-03-03 06:26] LABS: HEMATOCRIT 33.1 % (36.7-47.1); MEAN CORPUSCULAR HEMOGLOBIN 30.2 uug (23.8-33.4); MEAN CORPUSCULAR VOLUME 88.5 fL (73.0-96.2); PLATELET COUNT (AUTO) 166 K/uL (152-348)
[2022-03-03 06:31] LABS: CREATININE 0.9 mg/dL (0.6-1.3); MAGNESIUM 1.8 mg/dL (1.8-2.4); PHOSPHOROUS 2.9 mg/dL (2.5-4.9); POTASSIUM 3.3 mmol/L (3.5-5.1)
[2022-03-03] MEDS ORDERED: DIVA125C2 PO (06:50)
[2022-03-03] MEDS ORDERED: NALOXEGOL OXALATE PO SCH (09:00)
[2022-03-03] MEDS ORDERED: POTASSIUM CHLORIDE 20 MEQ POWDER PACKET PO ONE ×2 (09:15→11:15)
[2022-03-03] MEDS ORDERED: MOVANTIK 25MG TABLET PO SCH (10:00)
[2022-03-03] MEDS: ENSURE ENLIVE (VAN) 240 ML LIQUID PO SCH ×3 (10:00→17:00)
[2022-03-03] MEDS: MINOXIDIL 2.5 MG TABLET PO SCH ×2 (10:24→18:25)
[2022-03-03] MEDS: CULTURELLE CAPSULE PO SCH (10:24)
[2022-03-03] MEDS: levETIRAcetam 500 MG TABLET PO SCH ×2 (10:24→20:28)
[2022-03-03] MEDS: CHOLECALCIFEROL 1,000 UNIT TABLET PO SCH (10:24)
[2022-03-03] MEDS: MIRALAX 17 GM POWD.PACK PO SCH (10:25)
[2022-03-03] MEDS: VENLAFAXINE XR 150 MG CAP.SR.24H PO SCH (10:25)
[2022-03-03] MEDS: CLOPIDOGREL 75 MG TABLET PO SCH (10:25)
[2022-03-03] MEDS: CYANOCOBALAMIN 1000 MCG/ML VIAL IM SCH ×2 (10:25→10:46)
[2022-03-03 11:58] VITALS: BP 145/69
[2022-03-03] MEDS: VANCOMYCIN IV 500 MG in IV DEXTROSE 5% 100 ML IV SCH (13:33)
[2022-03-03 16:23] VITALS: BP 139/75
[2022-03-03 20:00] VITALS: BP 143/75
[2022-03-03] MEDS: ATORVASTATIN 10 MG TABLET PO SCH (20:28)
[2022-03-04] VITALS: BP 123/65
[2022-03-04] MEDS: CEFEPIME HCL 1 G in IV DEXTROSE 5% 50 ML IV SCH ×3 (01:32→18:09)
[2022-03-04 04:00] VITALS: BP 125/72
[2022-03-04] MEDS: IV NS 1000 ML 1,000 ML IV PRN ×2 (05:35→22:14)
[2022-03-04] MEDS: ACETAMINOPHEN 325 MG TABLET PO PRN (05:52)
[2022-03-04] MEDS: PANTOPRAZOLE SODIUM 40 MG TABLET.DR PO SCH (06:05)
[2022-03-04 07:50] LABS: CREATININE 0.7 mg/dL (0.6-1.3); POTASSIUM 3.6 mmol/L (3.5-5.1)
[2022-03-04] MEDS: levETIRAcetam 500 MG TABLET PO SCH ×2 (08:21→20:55)
[2022-03-04] MEDS: CLOPIDOGREL 75 MG TABLET PO SCH (08:21)
[2022-03-04] MEDS: CULTURELLE CAPSULE PO SCH (08:21)
[2022-03-04] MEDS: VANCOMYCIN IV 500 MG in IV DEXTROSE 5% 100 ML IV SCH (08:21)
[2022-03-04] MEDS: CHOLECALCIFEROL 1,000 UNIT TABLET PO SCH (08:22)
[2022-03-04] MEDS: ENSURE ENLIVE (VAN) 240 ML LIQUID PO SCH ×3 (08:22→17:00)
[2022-03-04] MEDS: MIRALAX 17 GM POWD.PACK PO SCH (08:22)
[2022-03-04] MEDS: MINOXIDIL 2.5 MG TABLET PO SCH ×2 (08:22→18:11)
[2022-03-04] MEDS: OXYCODONE/APAP 5-325 MG TABLET PO PRN (11:28)
[2022-03-04 12:00] VITALS: BP 121/64
[2022-03-04] MEDS ORDERED: LACTULOSE 20 G/30 ML LIQUID UDC PO ONE ×2 (12:15→13:30)
[2022-03-04] MEDS: VENLAFAXINE XR 150 MG CAP.SR.24H PO SCH (13:24)
[2022-03-04 16:00] VITALS: BP 137/72
[2022-03-04 20:36] VITALS: BP 130/70
[2022-03-04] MEDS: ATORVASTATIN 10 MG TABLET PO SCH (20:55)
[2022-03-05 00:44] VITALS: BP 131/72
[2022-03-05] MEDS: CEFEPIME HCL 1 G in IV DEXTROSE 5% 50 ML IV SCH ×3 (01:06→16:43)
[2022-03-05] MEDS: VANCOMYCIN IV 500 MG in IV DEXTROSE 5% 100 ML IV SCH ×2 (01:41→13:16)
[2022-03-05 04:57] VITALS: BP 151/71
[2022-03-05] MEDS: PANTOPRAZOLE SODIUM 40 MG TABLET.DR PO SCH (06:12)
[2022-03-05] MEDS ORDERED: VANCOMYCIN IV 500 MG in IV DEXTROSE 5% 100 ML IV SCH (06:45)
[2022-03-05 07:07] LABS: HEMATOCRIT 31.8 % (36.7-47.1); MEAN CORPUSCULAR HEMOGLOBIN 29.7 uug (23.8-33.4); MEAN CORPUSCULAR VOLUME 88.8 fL (73.0-96.2); PLATELET COUNT (AUTO) 210 K/uL (152-348)
[2022-03-05 07:29] LABS: CREATININE 0.7 mg/dL (0.6-1.3); MAGNESIUM 1.9 mg/dL (1.8-2.4); PHOSPHOROUS 2.8 mg/dL (2.5-4.9); POTASSIUM 3.8 mmol/L (3.5-5.1)
[2022-03-05] MEDS: CLOPIDOGREL 75 MG TABLET PO SCH (08:54)
[2022-03-05] MEDS: MIRALAX 17 GM POWD.PACK PO SCH (08:54)
[2022-03-05] MEDS: MINOXIDIL 2.5 MG TABLET PO SCH ×2 (08:55→16:42)
[2022-03-05] MEDS: CHOLECALCIFEROL 1,000 UNIT TABLET PO SCH (08:55)
[2022-03-05] MEDS: CULTURELLE CAPSULE PO SCH (08:55)
[2022-03-05] MEDS: levETIRAcetam 500 MG TABLET PO SCH ×2 (08:55→21:07)
[2022-03-05] MEDS: ENSURE ENLIVE (VAN) 240 ML LIQUID PO SCH ×3 (08:55→16:42)
[2022-03-05 12:01] VITALS: BP 152/81
[2022-03-05] MEDS: OXYCODONE/APAP 5-325 MG TABLET PO PRN (13:09)
[2022-03-05] MEDS: VENLAFAXINE XR 150 MG CAP.SR.24H PO SCH (13:09)
[2022-03-05] MEDS ORDERED: FLEET ENEMA 133 ML BOTTLE RC ONE ×2 (13:45→15:30)
[2022-03-05 16:04] VITALS: BP 122/82
[2022-03-05] MEDS ORDERED: BISACODYL 10 MG SUPP.RECT RC ONE ×2 (19:15→22:24)
[2022-03-05 20:10] VITALS: BP 142/72
[2022-03-05] MEDS: ATORVASTATIN 10 MG TABLET PO SCH (21:07)
[2022-03-06 00:27] VITALS: BP 135/68
[2022-03-06] MEDS: CEFEPIME HCL 1 G in IV DEXTROSE 5% 50 ML IV SCH ×3 (01:18→18:08)
[2022-03-06] MEDS: VANCOMYCIN IV 500 MG in IV DEXTROSE 5% 100 ML IV SCH (01:18)
[2022-03-06 04:33] VITALS: BP 151/70
[2022-03-06 06:30] LABS: HEMATOCRIT 31.7 % (36.7-47.1); MEAN CORPUSCULAR HEMOGLOBIN 29.7 uug (23.8-33.4); MEAN CORPUSCULAR VOLUME 89.1 fL (73.0-96.2); PLATELET COUNT (AUTO) 269 K/uL (152-348)
[2022-03-06] MEDS: PANTOPRAZOLE SODIUM 40 MG TABLET.DR PO SCH (06:41)
[2022-03-06 06:58] LABS: CREATININE 0.7 mg/dL (0.6-1.3); MAGNESIUM 1.8 mg/dL (1.8-2.4); PHOSPHOROUS 2.7 mg/dL (2.5-4.9); POTASSIUM 3.7 mmol/L (3.5-5.1)
[2022-03-06] MEDS: IV NS 1000 ML 1,000 ML IV PRN (07:53)
[2022-03-06] MEDS: CULTURELLE CAPSULE PO SCH (08:42)
[2022-03-06] MEDS: CHOLECALCIFEROL 1,000 UNIT TABLET PO SCH (08:42)
[2022-03-06] MEDS: levETIRAcetam 500 MG TABLET PO SCH ×2 (08:43→20:36)
[2022-03-06] MEDS: MINOXIDIL 2.5 MG TABLET PO SCH ×2 (08:43→16:50)
[2022-03-06] MEDS: MIRALAX 17 GM POWD.PACK PO SCH (08:43)
[2022-03-06] MEDS: CLOPIDOGREL 75 MG TABLET PO SCH (08:43)
[2022-03-06] MEDS: ENSURE ENLIVE (VAN) 240 ML LIQUID PO SCH ×3 (08:44→16:50)
[2022-03-06] MEDS: OXYCODONE/APAP 5-325 MG TABLET PO PRN (09:35)
[2022-03-06 12:02] VITALS: BP 107/74
[2022-03-06] MEDS: MEGESTROL ACETATE 20 MG TABLET PO SCH ×2 (12:16→16:50)
[2022-03-06] MEDS: VENLAFAXINE XR 150 MG CAP.SR.24H PO SCH (13:37)
[2022-03-06] MEDS: VANCOMYCIN IV 750 MG in IV DEXTROSE 5% 250 ML IV SCH (14:02)
[2022-03-06 16:29] VITALS: BP 135/68
[2022-03-06 20:30] VITALS: BP 141/80
[2022-03-06] MEDS: ATORVASTATIN 10 MG TABLET PO SCH (20:36)
[2022-03-07] MEDS: ACETAMINOPHEN 325 MG TABLET PO PRN (00:01)
[2022-03-07 00:15] VITALS: BP 151/75
[2022-03-07] MEDS: CEFEPIME HCL 1 G in IV DEXTROSE 5% 50 ML IV SCH ×2 (01:08→09:23)
[2022-03-07] MEDS: VANCOMYCIN IV 750 MG in IV DEXTROSE 5% 250 ML IV SCH (01:42)
[2022-03-07 04:12] VITALS: BP 149/71
[2022-03-07] MEDS: PANTOPRAZOLE SODIUM 40 MG TABLET.DR PO SCH (06:14)
[2022-03-07] MEDS: levETIRAcetam 500 MG TABLET PO SCH (08:42)
[2022-03-07] MEDS: MEGESTROL ACETATE 20 MG TABLET PO SCH (08:42)
[2022-03-07] MEDS: CLOPIDOGREL 75 MG TABLET PO SCH (08:42)
[2022-03-07] MEDS: CHOLECALCIFEROL 1,000 UNIT TABLET PO SCH (08:43)
[2022-03-07] MEDS: MINOXIDIL 2.5 MG TABLET PO SCH (08:45)
[2022-03-07] MEDS: MIRALAX 17 GM POWD.PACK PO SCH (08:46)
[2022-03-07] MEDS: CULTURELLE CAPSULE PO SCH (08:46)
[2022-03-07] MEDS: ENSURE ENLIVE (VAN) 240 ML LIQUID PO SCH ×2 (08:49→13:21)
[2022-03-07 11:49] VITALS: BP 134/74
[2022-03-07] MEDS: VENLAFAXINE XR 150 MG CAP.SR.24H PO SCH (13:20)
== END 2022-03-07 14:10 | DRG 177 ==
LOC: TELE3 15:56
PROVIDERS: ADMIT Nurse Practitioner Family; ATTEND Nurse Practitioner Acute Care
PROC: 05H533Z Insertion of Infusion Device into Right Subclavian Vein, Percutaneous Approach (ICD-10-PCS; principal; 2022-03-04)
PROC: B546ZZA Ultrasonography of Right Subclavian Vein, Guidance (ICD-10-PCS; 2022-03-04)
DX: J69.0 Pneumonitis due to inhalation of food and vomit (principal); E43 Unspecified severe protein-calorie malnutrition; J96.01 Acute respiratory failure with hypoxia; N17.0 Acute kidney failure with tubular necrosis; D84.9 Immunodeficiency, unspecified; E87.1 Hypo-osmolality and hyponatremia; R64 Cachexia; Z68.1 Body mass index [BMI] 19.9 or less, adult; F31.9 Bipolar disorder, unspecified; E53.8 Deficiency of other specified B group vitamins; D64.9 Anemia, unspecified; E87.6 Hypokalemia; E88.09 Other disorders of plasma-protein metabolism, not elsewhere classified; G40.909 Epilepsy, unspecified, not intractable, without status epilepticus; I25.10 Atherosclerotic heart disease of native coronary artery without angina pectoris; I10 Essential (primary) hypertension; Z86.73 Personal history of transient ischemic attack (TIA), and cerebral infarction without residual deficits; Z88.0 Allergy status to penicillin; Z88.2 Allergy status to sulfonamides; M19.90 Unspecified osteoarthritis, unspecified site; J15.9 Unspecified bacterial pneumonia
CPT/HCPCS: 36415; 36600; 71045; 83605; 83735; 84100; 85025; 97161; A4663; G0378; J0692; J3370; J3420; J7040; J7050; J8499

== ENCOUNTER 2022-10-26 14:47 | Emergency (ER) | payer BC, MEDICARE ==
[~2022-10-26] VITALS: Ht 167.6 cm; Wt 51.7 kg
[~2022-10-26 14:47] MED LIST changes: +DIVA125C2 PO; +HYDR12.55 PO; +LACT-246 PO; +VENL150C2 PO
--- NOTE | 2022-10-26 15:23 | NUR ---
PT SEEN AND EXAMINED BY DR PUTNAM. TO RADIOLOGY VIA WHEELCHAIR FORORDERED TEST.
--- NOTE | 2022-10-26 16:01 | NUR ---
DR PUTNAM REVIEWED CT RESULTS WITH DAUGHTER; DISCHARGED IN STABLE CONDITION.
[2022-10-26 16:03] VITALS: BP 137/68
== END 2022-10-26 16:03 | disposition home or self-care (01) ==
LOC: ER 14:47
DX: S09.90XA Unspecified injury of head, initial encounter (principal); I11.0 Hypertensive heart disease with heart failure; I50.9 Heart failure, unspecified; I25.10 Atherosclerotic heart disease of native coronary artery without angina pectoris; Z86.73 Personal history of transient ischemic attack (TIA), and cerebral infarction without residual deficits; Z88.0 Allergy status to penicillin; Z88.2 Allergy status to sulfonamides; Z88.1 Allergy status to other antibiotic agents; Z88.6 Allergy status to analgesic agent; Z91.011 Allergy to milk products; Z88.8 Allergy status to other drugs, medicaments and biological substances; Z79.899 Other long term (current) drug therapy; W18.39XA Other fall on same level, initial encounter; Y93.89 Activity, other specified; Y92.89 Other specified places as the place of occurrence of the external cause; Y99.8 Other external cause status
CPT/HCPCS: 70450; A4663

== ENCOUNTER 2024-03-29 13:29 | Emergency (ER) | payer BC, MEDICARE ==
[~2024-03-29] VITALS: Ht 167.6 cm; Wt 59.9 kg
[2024-03-29 14:13] LABS: BASOPHILS % (AUTO) 0.6 % (0.0-2.0); EOSINOPHILS # (AUTO) 0.1 K/uL (0.0-0.7); EOSINOPHILS % (AUTO) 2.1 % (0.0-7.0); HEMOGLOBIN 12.4 g/dL (12.5-16.3); LYMPHOCYTES % (AUTO) 14.4 % (20.5-51.5); MEAN CORPUSCULAR HGB CONC 33 g/dL (32.5-36.3); MEAN CORPUSCULAR VOLUME 89.6 fL (73.0-96.2); MONOCYTES # (AUTO) 0.6 K/uL (0.1-1.30); MONOCYTES % (AUTO) 9.6 % (0.0-11.0); NEUTROPHILS # (AUTO) 4.9 K/uL (1.8-8.9); NEUTROPHILS % (AUTO) 73.3 % (38.5-71.5); PLATELET COUNT (AUTO) 231 K/uL (152-348); RED BLOOD CELL COUNT(AUTO) 4.13 MIL/uL (4.06-5.63); WHITE BLOOD COUNT (AUTO) 6.7 K/uL (3.6-10.2)
[2024-03-29] MEDS: IV NORMAL SALINE 1000 ML BAG IV ONE (14:26)
[2024-03-29 14:36] LABS: DIFFERENTIAL COMMENT 1
[2024-03-29 14:41] LABS: AMMONIA < 10 umol/L (11-32)
[2024-03-29 14:46] LABS: ETHANOL < 3 MG/DL (0-10)
[2024-03-29 14:53] LABS: ACETAMINOPHEN 3.6 ug/mL (10-30); ALANINE AMINOTRANSFERASE 18 U/L (16-63); ALBUMIN 3.6 g/dL (3.4-5.0); ALKALINE PHOSPHATASE 79 U/L (50-136); ASPARTATE AMINOTRANSFERASE 13 U/L (15-37); BILIRUBIN,DIRECT 0.1 mg/dL (0.0-0.2); BILIRUBIN,TOTAL 0.4 mg/dL (0.2-1.0); CALCIUM 8.8 mg/dL (8.5-10.1); CARBON DIOXIDE 33 mmol/L (21-32); CHLORIDE 102 mmol/L (98-107); CREATININE 1.1 mg/dL (0.6-1.3); SODIUM SERUM 140 mmol/L (136-145); TOTAL PROTEIN, SERUM 7.4 g/dL (6.4-8.2); UREA NITROGEN, BLOOD 12 mg/dL (7-18)
[2024-03-29 14:58] LABS: GLUCOSE 94 mg/dL (74-106)
[2024-03-29 15:43] LABS: *BILIRUBIN,URIN NEGATIVE (NEGATIVE); *BLOOD, URINE NEGATIVE (NEGATIVE); *CLARITY,URINE CLEAR (CLEAR); *COLOR,URINE YELLOW (YELLOW); *KETONES,URINE NEGATIVE (NEGATIVE); *PROTEIN,URINE NEGATIVE (NEGATIVE); *UROBILINOGEN,URINE 0.2 E.U./dl (NORMAL); LEUKOCYTE ESTERASE ,URINE NEGATIVE (NEGATIVE); NITRITE, URINE NEGATIVE (NEGATIVE); UGLUCOSE NEGATIVE (NEGATIVE)
[2024-03-29] MEDS ORDERED: hydrALAZINE HCL 20 MG/1 ML VIAL IV PRN (15:45)
[2024-03-29] MEDS ORDERED: ACETAMINOPHEN 325 MG TABLET PO PRN (15:45)
[2024-03-29] MEDS ORDERED: Medication Not On Formulary EA (Lorazepam (Ativan) 2 MG) PO PRN (15:45)
[2024-03-29] MEDS ORDERED: MORPHINE SULFATE 2 MG/1 ML DISP.SYRIN IVP PRN (15:45)
[2024-03-29] MEDS ORDERED: ONDANSETRON 4 MG/2 ML VIAL IV PRN (15:45)
[2024-03-29 16:02] LABS: *AMPHETAMINE, URINE NEGATIVE (NEGATIVE); *BARBITURATE, URINE NEGATIVE (NEGATIVE); *BENZODIAZEPINE, URINE NEGATIVE (NEGATIVE); *CANNABINOID, URINE NEGATIVE (NEGATIVE); *COCCAINE, URINE NEGATIVE (NEGATIVE); *OPIATE, URINE POSITIVE (NEGATIVE); *PHENCYCLIDINE SCREEN,URINE NEGATIVE (NEGATIVE); FENTANYL, URINE NEGATIVE (NEGATIVE)
[2024-03-29 16:43] VITALS: BP 141/82; O2SAT 100
[2024-03-29] MEDS ORDERED: DOCUSATE SODIUM 100 MG CAPSULE PO SCH (17:00)
[2024-03-29] MEDS ORDERED: DIVALPROEX SPRINKLE 125 MG CAP.SPRINK PO SCH (17:00)
[2024-03-29] MEDS ORDERED: MINOXIDIL 2.5 MG TABLET PO SCH (17:00)
[2024-03-29] MEDS ORDERED: HEPARIN SODIUM,PORCINE 5,000 UNITS/ML VIAL SQ SCH (17:00)
[2024-03-29] MEDS ORDERED: ATORVASTATIN 10 MG TABLET PO SCH (18:00)
[2024-03-29] MEDS ORDERED: QUETIAPINE FUMARATE 25 MG TABLET PO SCH (21:00)
[2024-03-29] MEDS ORDERED: levETIRAcetam 500 MG TABLET PO SCH (21:00)
[2024-03-30] MEDS ORDERED: VENLAFAXINE XR 150 MG CAP.SR.24H PO SCH (09:00)
[2024-03-30] MEDS ORDERED: PANTOPRAZOLE SODIUM 40 MG TABLET.DR PO SCH (09:00)
[2024-03-30] MEDS ORDERED: CLOPIDOGREL 75 MG TABLET PO SCH (09:00)
[2024-03-30] MEDS ORDERED: MIRALAX 17 GM POWD.PACK PO SCH (09:00)
[2024-03-30] MEDS ORDERED: Medication Not On Formulary EA (Cholecalciferol (Vitamin D3) (Vitamin D3) 1 CAP) PO SCH (09:00)
== END 2024-03-29 16:46 | disposition home or self-care (01) ==
LOC: ER 13:56
DX: R10.31 Right lower quadrant pain (principal); R53.1 Weakness; F02.80 Dementia in other diseases classified elsewhere, unspecified severity, without behavioral disturbance, psychotic disturbance, mood disturbance, and anxiety; G30.9 Alzheimer's disease, unspecified; G20.A1 Parkinson's disease without dyskinesia, without mention of fluctuations; G40.909 Epilepsy, unspecified, not intractable, without status epilepticus; I11.0 Hypertensive heart disease with heart failure; I25.10 Atherosclerotic heart disease of native coronary artery without angina pectoris; I50.9 Heart failure, unspecified; Z79.02 Long term (current) use of antithrombotics/antiplatelets; Z79.899 Other long term (current) drug therapy; Z86.16 Personal history of COVID-19; Z87.01 Personal history of pneumonia (recurrent); Z95.5 Presence of coronary angioplasty implant and graft; Z96.641 Presence of right artificial hip joint; Z86.73 Personal history of transient ischemic attack (TIA), and cerebral infarction without residual deficits; Z88.0 Allergy status to penicillin; Z88.1 Allergy status to other antibiotic agents; Z88.2 Allergy status to sulfonamides; Z88.6 Allergy status to analgesic agent
CPT/HCPCS: 80076; 80048; 81003; 82140; 83690; 85025; 85730; 87040 ×2; 84484; 36415; 71045; 70450; 74176; 93005; 99285; 96360; 96361; 83605; 80299; 80320; 80307; J7040; A4663; G0480